=== PATIENT | female | born 1950 | race Caucasian/White ===

== ENCOUNTER → 2017-03-23 | Outpatient (CLI) | payer MEDICARE ==
--- NOTE | 2017-03-26 08:02 | BD ---
EXAMINATION TYPE: MG DEXA axial skeleton. DATE OF EXAM: 03/23/2017 COMPARISON: Prior DEXA bone scan March 14, 2011 CLINICAL HISTORY: Osteopenia per order. Postmenopausal female. Height: 68 Weight: 235.0 FRAX RISK QUESTIONS: Alcohol (3 or more units per day): no Family History (Parent hip fracture): no Glucocorticoids (More than 3mos): no (Ex: prednisone, prednisolone, methylprednisolone, dexamethasone, and hydrocortisone). History of Fracture in Adulthood: no Secondary Osteoporosis: 1. Type 1 Diabetes: no 2. Hyperthyroidism: no 3. Menopause before 45: yes 4. Malnutrition: no 5. Chronic liver disease: no Rheumatoid Arthritis: no Current Tobacco Use: no RISK FACTORS HISTORY OF: Hip Fracture (Right/Left): no Spine Fracture: no History of Wrist Fracture: no Surgery to Spine/Hip(right/left)/Wrist (right/left): bilateral carpal tunnel Family History of Osteoporosis: no Active: no Diet low in dairy products/other sources of calcium: no Postmenopausal woman: yes Lost more than 2 inches in height since high school: yes Frequent falls: no Poor Health: no Hyperparathyroidism: no Adrenal Insufficiency: no MEDICATIONS: naproxen, Singulair Additional History: pt had breast cancer /2006 EXAM MEASUREMENTS: Bone mineral densitometry was performed using the Liquid [employer] System. Bone mineral density as measured about the Lumbar spine is: ----- L1-L4(G/cm2): 1.432 T Score Values are as follows: ----- L2: 1.6 ----- L3: 3.2 ----- L4: 2.6 ----- L1-L4: 2.1 Bone mineral density has: increased 2.1 % since study of: 03.14.2011 Bone mineral density about the R hip (g/cm2): 0.944 Bone mineral density about the L hip (g/cm2): 0.930 T Score values are as follows: -----R Neck: -0.7 -----L Neck: -0.8 -----R Total: -0.7 -----L Total: 0.3 Bone mineral density has: increased 1.9 % since study of: 03.14.2011 IMPRESSION: Normal (Values between +1 and -1 indicate normal bone mass) on today's study. Bone density stable fr om prior. Consider repeating this study in 5 years or sooner if there is some new clinical indication . NOTE: T-SCORE=SD OF THE YOUNG ADULT MEAN.
--- NOTE | 2017-03-26 10:18 | MM ---
Reason for exam: additional evaluation requested from prior study. Last mammogram was performed 1 year and 1 month ago. History: Patient is postmenopausal, has history of breast cancer at age 55, and history of other cancer. Family history of breast cancer in grandmother and breast cancer in mother at age 60. Implant in the right breast, December 2006. Reduction of the left breast, December 2006. Mastectomy of the right breast, October 23, 2006. Malignant right mammotome panel of the right breast, July 20, 2006. Taking estrogen for 13 years 7 months beginning at age 42. Taking progesterone for 13 years 7 months beginning at age 42. Taking tamoxifen for 5 years beginning at age 55. Physical Findings: Nurse did not find any significant physical abnormalities on exam. MG 3D Diag Mammo W/Cad LT CC and MLO view(s) were taken of the left breast. Prior study comparison: March 02, 2016, left breast MG 3d diag mammo w/cad LT. June 29, 2014, mammogram, performed at [facility]. There are scattered fibroglandular densities. No suspicious abnormality. No significant new findings when compared with previous films. These results were verbally communicated with the patient and result sheet given to the patient on 03/23/17. ASSESSMENT: Negative, BI-RAD 1 RECOMMENDATION: Follow-up diagnostic mammogram of the left breast in 1 year.
== END | disposition home or self-care (01) ==
LOC: RADMAMWWP 14:15
PROVIDERS: ATTEND Internal Medicine Hematology & Oncology
DX: Z08 Encounter for follow-up examination after completed treatment for malignant neoplasm (principal); M85.80 Other specified disorders of bone density and structure, unspecified site; N95.1 Menopausal and female climacteric states; Z85.3 Personal history of malignant neoplasm of breast
CPT/HCPCS: 77080

== ENCOUNTER → 2017-12-31 | Outpatient (CLI) | payer MEDICARE ==
[2017-12-31 10:57] LABS: HCT 41.4 % (34.0-46.0); HGB 13.7 gm/dL (11.4-16.0); MCH 31.4 pg (25.0-35.0); Mean Platelet Volume 8.2; Platelet Count 230 k/uL (150-450); RBC 4.36 m/uL (3.80-5.40); RDW 13.7 % (11.5-15.5); WBC 7.3 k/uL (3.8-10.6)
[2017-12-31 11:01] LABS: INR 0.9 (<1.2); Prothrombin Time 9.4 sec (9.0-12.0)
[2017-12-31 11:07] LABS: Appearance,Urine Clear (Clear); Bilirubin,Urine Negative (Negative); Blood,Urine Negative (Negative); Calcium 9.5 mg/dL (8.4-10.2); Color,Urine Light Yellow; Glucose,Urine (UA) Negative (Negative); Ketones,Urine Negative (Negative); Leukocyte Esterase,Urine Negative (Negative); Nitrite,Urine Negative (Negative); PH, Urine 5.5 (5.0-8.0); Potassium 4.2 mmol/L (3.5-5.1); Protein,Urine Negative (Negative); Specific Gravity,Urine 1.013 (1.001-1.035); Total Bilirubin 0.3 mg/dL (0.2-1.3); Total Protein 6.6 g/dL (6.3-8.2); Urobilinogen,Urine <2.0 mg/dL (<2.0)
== END | disposition home or self-care (01) ==
LOC: LABPAT 09:29
PROVIDERS: ATTEND Orthopaedic Surgery
DX: Z01.812 Encounter for preprocedural laboratory examination (principal); Z01.818 Encounter for other preprocedural examination
CPT/HCPCS: 36415; 80053; 81003; 85027; 85610; 85730; 87070; 93005

== ENCOUNTER 2018-01-08 06:17 | Inpatient (IN) | payer MEDICARE ==
[2018-01-03 12:05] VITALS: BMI 32.4
[~2018-01-08 06:17] MED LIST: DEXAMETHASONE SOD PHOSPHATE 10 MG/ML 1 ML VIAL IV ONE; LACTATED RINGERS 1,000 ML IV SCH; LIDOCAINE 1% 20 ML VIAL (10MG/ML) FOR IV START INTRADERMA PRN; MIDAZOLAM 2 MG/2 ML VIAL IV PRN; ONDANSETRON 4 MG/2 ML VIAL IVP ONE; ceFAZolin IN SWFI 2 GM/20 ML SYRINGE IVP ONE
[2018-01-08] MEDS ORDERED: PHENYLEPHRINE-0.9% NACL SYG 1 MG/10 ML SYRINGE ONE (07:45)
[2018-01-08] MEDS ORDERED: MIDAZOLAM 2 MG/2 ML VIAL ONE (07:45)
[2018-01-08] MEDS ORDERED: PROPOFOL 10 MG/ML 20 ML VIAL IV ONE (07:45)
[2018-01-08] MEDS ORDERED: fentaNYL (PF) 50 MCG/ML 2 ML AMP ONE (07:45)
[2018-01-08] MEDS ORDERED: diphenhydrAMINE 50 MG/ML 1 ML VIAL ONE (07:45)
[2018-01-08] MEDS ORDERED: LACTATED RINGERS 1,000 ML IV ONE ×2 (08:22→13:01)
[2018-01-08] MEDS ORDERED: ceFAZolin 3,000 MG in SODIUM CHLORIDE 0.9% IRRIGATIO 3,000 ML IRRIGATION ONE (08:24)
[2018-01-08] MEDS ORDERED: NA PHOS,M-B/NA PHOS,DI-BA 133 ML ENEMA RECTAL PRN (10:13)
[2018-01-08] MEDS ORDERED: NALOXONE 0.4 MG/ML 1 ML VIAL IV PRN (10:13)
[2018-01-08] MEDS ORDERED: MAGNESIUM HYDROXIDE 2,400 MG/10 ML CUP PO PRN (10:13)
[2018-01-08] MEDS ORDERED: BISACODYL 10 MG SUPP RECTAL PRN (10:13)
[2018-01-08] MEDS ORDERED: ACETAMINOPHEN TAB 325 MG TAB PO PRN (10:13)
[2018-01-08] MEDS ORDERED: HYDROcodone/APAP 5-325MG 1 EACH TAB PO PRN (10:13)
[2018-01-08] MEDS ORDERED: HYDROmorphone 0.5 MG/0.5 ML SYRINGE IVP PRN ×4 (10:13)
[2018-01-08] MEDS ORDERED: ONDANSETRON 4 MG/2 ML VIAL IVP PRN (10:13)
[2018-01-08] MEDS ORDERED: hydrOXYzine PAMOATE 25 MG CAP PO PRN (10:13)
[2018-01-08] MEDS ORDERED: TEMAZEPAM 15 MG CAP PO PRN (10:13)
[2018-01-08] MEDS: fentaNYL (PF) 50 MCG/ML 2 ML AMP IV PRN ×2 (10:19→10:35)
--- NOTE | 2018-01-08 10:43 | XR ---
EXAMINATION TYPE: XR knee limited RT DATE OF EXAM: 01/08/2018 CLINICAL HISTORY: Right knee pain and arthritis status post total knee replacement. TECHNIQUE: Portable AP and crosstable lateral views of the right knee are obtained immediately posto peratively. COMPARISON: None FINDINGS: Metallic hardware from total right knee arthroplasty is seen and appears satisfactory in a lignment and position. There is evidence of recent surgery with diffuse subcutaneous gas and soft ti ssue gas noted. IMPRESSION: METALLIC HARDWARE FROM TOTAL RIGHT KNEE ARTHROPLASTY IS SATISFACTORY IN ALIGNMENT.
[2018-01-08] MEDS ORDERED: MEPERIDINE 50 MG/ML SYRINGE IVP ONE ×2 (11:14→11:36)
[2018-01-08] MEDS ORDERED: HYDROmorphone 1 MG/ML 1 ML SYRINGE IVP ONE ×2 (12:24→12:35)
[2018-01-08] MEDS: LACTATED RINGERS 1,000 ML IV SCH ×2 (13:35→22:40)
[2018-01-08] MEDS: HYDROcodone/APAP 5-325MG 1 EACH TAB PO PRN ×2 (16:46→22:38)
[2018-01-08] MEDS: ceFAZolin IN SWFI 2 GM/20 ML SYRINGE IVP SCH (16:47)
--- NOTE | 2018-01-08 17:55 | P.CNPUL ---
History of Present Illness Consult date: 01/08/18 Reason for consult: other Chief complaint: Right total knee arthroplasty History of present illness: Patient is a 67-year-old white female with the past medical history of breast cancer status post right breast mastectomy, previous episode of pneumonia, skin cancer and ALLERGIC rhinitis, degenerative joint disease of the right knee, is status post right total knee arthroplasty. She sees Dr. 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 Patient had tried Eufflexxa injection series, and several corticosteroid injections both without benefit, she was having pain in the right knee as well as stiffness, in addition to altered gait this was affecting her back as well. Patient underwent right total knee arthroplasty on 01/08/2018, under spinal anesthesia, tolerated procedure well, seeing the patient postprocedure, awake and alert, and comfortable, sitting up in the recliner on the surgical floor. He denies any dyspnea, she is on room air, and her pulse ox is 95%, patient is afebrile, vitals are stable. On sounds are clear, no wheezing, no rhonchi, no rales. Labs were reviewed, WBC is within normal limits, hemoglobin is 13.7, lecture lites and renal profile are within normal limits. The mild discomfort in the right knee, which is El wrapped, and there is ice applied to it. Otherwise patient is calm and comfortable, her family is at the bedside. Review of Systems All systems: negative Constitutional: Denies chills, Denies fever Eyes: denies blurred vision, denies pain Ears, nose, mouth and throat: Denies headache, Denies sore throat Cardiovascular: Denies chest pain, Denies shortness of breath Respiratory: Denies cough Gastrointestinal: Denies abdominal pain, Denies diarrhea, Denies nausea, Denies vomiting Genitourinary: Denies dysuria, Denies hematuria Musculoskeletal: Reports gait dysfunction, Reports limitation of motion, Denies myalgias Musculoskeletal: right: knee pain, knee stiffness Integumentary: Denies pruritus, Denies rash Neurological: Denies numbness, Denies weakness Psychiatric: Denies anxiety, Denies depression Endocrine: Denies fatigue, Denies weight change Past Medical History Past Medical History: Cancer, Osteoarthritis (OA) Additional Past Medical History / Comment(s): HX BREAST AND SKIN CANCER History of Any Multi-Drug Resistant Organisms: None Reported Past Surgical History: Breast Surgery, Orthopedic Surgery Additional Past Surgical History / Comment(s): COLONOSCOPY. BILAT CTR. REMOVAL BASAL CELL CARCINOMA LT ARM. RT MASTECTOMY. RT BUNIONECTOMY, TRK Past Anesthesia/Blood Transfusion Reactions: No Reported Reaction Additional Past Anesthesia/Blood Transfusion Reaction / Comment(s): STATES ONLY TAKE A LITTLE ANESTHESIA TO BE EFFECTIVE Past Psychological History: No Psychological Hx Reported Smoking Status: Former smoker Past Alcohol Use History: None Reported Additional Past Alcohol Use History / Comment(s): QUIT SMOKING AGE 29 Past Drug Use History: None Reported - Past Family History Mother Family Medical History: Cancer Medications and Allergies Home Medications Medication Instructions Recorded Confirmed Type Aspirin EC [Ecotrin Low Dose] 81 mg PO DAILY 01/03/18 01/08/18 History Calcium Citrate/Vitamin D3 1 tab PO HS 01/03/18 01/08/18 History [Calcitrate + Vit D Caplet] Excedrin Pm 2 tab PO HS 01/03/18 01/08/18 History Flaxseed Oil [Andrews-3 Flaxseed Oil] 1,000 mg PO DAILY 01/03/18 01/08/18 History Montelukast [Singulair] 10 mg PO HS 01/03/18 01/08/18 History Naproxen [Naprosyn] 500 mg PO Q12HR 01/03/18 01/08/18 History Allergies Allergy/AdvReac Type Severity Reaction Status Date / Time venlafaxine [From Effexor] AdvReac LIGHTHEADED Verified 01/08/18 14:24 AND DIZZY Physical Exam Vitals: Vital Signs Temp Pulse Resp BP Pulse Ox 01/08/18 15:15 98.3 F 86 16 115/70 97 01/08/18 13:13 97.8 F 59 L 14 149/82 95 01/08/18 12:55 84 16 137/65 100 01/08/18 12:25 77 16 128/62 100 01/08/18 12:00 71 16 127/60 100 01/08/18 11:44 73 16 145/67 99 01/08/18 11:30 65 16 128/61 100 01/08/18 11:00 67 16 128/59 100 01/08/18 10:47 63 16 126/60 98 01/08/18 10:34 74 16 130/63 94 L 01/08/18 10:09 96.9 F L 71 18 134/56 95 01/08/18 06:42 98.0 F 81 16 134/62 96 Intake and Output 01/08/18 01/08/18 01/08/18 06:59 14:59 22:59 Intake Total 1950 Output Total 500 Balance 1451 Intake: IV 1950 Output: Urine 450 Estimated Blood Loss 50 Other: Voiding Method Indwelling Catheter Weight 102.512 kg GENERAL EXAM: Alert, pleasant 67-year-old female, comfortable in no apparent distress. HEAD: Normocephalic/atraumatic. EYES: Normal reaction of pupils, equal size. Conjunctiva pink, sclera white. NOSE: Clear with pink turbinates. THROAT: No erythema or exudates. NECK: No masses, no JVD, no thyroid enlargement, no adenopathy. CHEST: No chest wall deformity. Symmetrical expansion. LUNGS: Equal air entry with no crackles, wheeze, rhonchi or dullness. CVS: Regular rate and rhythm, normal S1 and S2, no gallops, no murmurs, no rubs ABDOMEN: Soft, nontender. No hepatosplenomegaly, normal bowel sounds, no guarding or rigidity. EXTREMITIES: No clubbing, no edema, no cyanosis, 2+ pulses and upper and lower extremities. MUSCULOSKELETAL: Right knee is postsurgical knee, El wrapped, with ice. SPINE: No scoliosis or deformity SKIN: No rashes CENTRAL NERVOUS SYSTEM: Alert and oriented -3. No focal deficits, tone is normal in all 4 extremities. PSYCHIATRIC: Alert and oriented -3. Appropriate affect. Intact judgment and insight. Assessment and Plan Plan: Assessment: #1. Degenerative joint disease of knee, status post total right knee arthroplasty postop day 0 #2. COPD, with moderate obstruction, with underlying FEV1 of 75% of predicted, currently stable #3. Previous smoking history #4. History of breast cancer and right breast mastectomy #5. Previous episode of pneumonia #6. Seasonal rhinitis Plan: She is stable from pulmonary standpoint, no dyspnea, no wheezing, no chest congestion. Encourage deep breathing and coughing, encourage incentive spirometry use, we will order DuoNeb nebulized treatments on an as-needed basis. I performed a history & physical examination of the patient and discussed their management with my nurse practitioner, Rosita Reyes. I reviewed the nurse practitioner's note and agree with the documented findings and plan of care. Lung sounds are clear. The findings and the impression was discussed with the patient. I attest to the documentation by the nurse practitioner. Time with Patient: Greater than 30
[2018-01-08] MEDS ORDERED: WARFARIN 5 MG TAB PO ONE (18:00)
[2018-01-08] MEDS: SENNOSIDES-DOCUSATE SODIUM 1 EACH TAB PO SCH (21:02)
[2018-01-08] MEDS: MONTELUKAST 10 MG TAB PO SCH (21:02)
[2018-01-09] MEDS: ceFAZolin IN SWFI 2 GM/20 ML SYRINGE IVP SCH (04:17)
[2018-01-09] MEDS: HYDROcodone/APAP 5-325MG 1 EACH TAB PO PRN ×3 (06:08→18:42)
[2018-01-09 08:06] LABS: INR 1.2 (<1.2); Prothrombin Time 11.3 sec (9.0-12.0)
[2018-01-09 08:08] LABS: Basophils % (A) 0 %; Eosinophils % (A) 0 %; HCT 32.8 % (34.0-46.0); HGB 10.8 gm/dL (11.4-16.0); Lymphocytes # (A) 1.4 k/uL (1.0-4.8); Lymphocytes % (A) 17 %; MCH 30.6 pg (25.0-35.0); MCHC 32.8 g/dL (31.0-37.0); MCV 93.5 fL (80.0-100.0); Mean Platelet Volume 8.3; Monocytes # (A) 0.6 k/uL (0-1.0); Monocytes % (A) 7 %; Neutrophils # (A) 6.1 k/uL (1.3-7.7); Neutrophils % (A) 74 %; Platelet Count 270 k/uL (150-450); RBC 3.51 m/uL (3.80-5.40); RDW 13.1 % (11.5-15.5); WBC 8.3 k/uL (3.8-10.6)
--- NOTE | 2018-01-09 08:52 | P.PN ---
Subjective Progress Note Date: 01/09/18 Principal diagnosis: Status post right total knee arthroplasty This is a 67 year-old female post right total knee arthroplasty. This is post- op day 1. The patient was evaluated in the recliner at the bedside today. The patient denies nausea, vomiting, abdominal pain, shortness of breath, and chest pain this morning. She states her pain is controlled at this time. The patient has not been up with physical therapy. Objective - Vital Signs Vital signs: Vital Signs Temp 98.2 F 01/09/18 01:13 Pulse 84 01/09/18 01:13 Resp 16 01/09/18 01:13 BP 124/69 01/09/18 01:13 Pulse Ox 96 01/09/18 01:13 Intake & Output 01/08/18 01/09/18 01/09/18 18:59 06:59 18:59 Intake Total 195 1600 Output Total 500 400 Balance 1451 1200 Weight 102.512 kg Intake: IV 1950 Intake, IV Titration 1600 Amount Lactated Ringers 1,000 ml 800 @ 0 mls/hr IV .[facility] Rx#:[id number] Lactated Ringers 1,000 ml 800 @ 100 mls/hr IV .Q10H [facility] Rx#:[id number] Output: Urine 450 400 Estimated Blood Loss 50 Other: Voiding Method Indwelling Catheter Indwelling Catheter # Voids 2 - Exam The patient does not appear in acute distress. Alert and orientated x3. Dressing is clean dry and intact. Incision appears fine with no erythema or active drainage. Calf is soft and nontender. Good foot and ankle motion without difficulty. Sensation and circulatory status is intact. - Labs CBC & Chem 7: 01/09/18 07:22 Labs: Abnormal Lab Results - Last 24 Hours (Table) 01/09/18 01/09/18 Range/Units 07:22 07:22 RBC 3.51 L (3.80-5.40) m/uL Hgb 10.8 L (11.4-16.0) gm/dL Hct 32.8 L (34.0-46.0) % INR 1.2 H (<1.2) Laboratory Tests 01/09/18 07:22 PT 11.3 INR 1.2 H Assessment and Plan (1) Primary localized osteoarthritis of right knee Current Visit: Yes Status: Acute Code(s): M17.11 - UNILATERAL PRIMARY OSTEOARTHRITIS, RIGHT KNEE SNOMED Code(s): 275200534 (2) Status post right knee replacement Current Visit: Yes Status: Acute Code(s): Z96.651 - PRESENCE OF RIGHT ARTIFICIAL KNEE JOINT SNOMED Code(s): 418258050 Plan: 1. Continue pain control 2. Anticoagulation with Coumadin per protocol 3. Start physical therapy, CPM and ambulation today 4. Anticipate discharge to skilled rehab on Sunday
[2018-01-09] MEDS ORDERED: IPRATROPIUM-ALBUTEROL 3 ML NEB INHALATION PRN (09:36)
[2018-01-09] MEDS: LACTATED RINGERS 1,000 ML IV SCH ×2 (11:36→17:24)
--- NOTE | 2018-01-09 12:30 | OP ---
OPERATIVE REPORT DATE OF SERVICE: 01/08/2018 SURGEON: Keon Najera DO TRAIN DIRECTOR: Kathleen Bauer RN. PREOPERATIVE DIAGNOSIS: Tricompartment degenerative joint disease right knee with prominence of components. FINAL DIAGNOSIS: Right total knee replacement arthroplasty utilizing Tamara Press-Fit components. DESCRIPTION OF PROCEDURE: Patient was taken to the operative suite and placed in supine position. Spinal anesthesia was performed by Department of Anesthesiology. Betadine prep was carried out over the median thigh to the calf. Sterile drapes applied in the usual manner. A medial parapatellar incision was developed. The medial retinaculum was incised as well as the synovium. The patella was everted and dislocated laterally as the knee was brought into flexion and held in a leg nicole. An intramedullary cutting guide was utilized in initiated into the femur. The appropriate cuts were initiated from the sizing of a 10 right femur component. The provisionary component of a size 10 was impacted into position and alignment as well as bone interface was well maintained. The tibial cutting guide was aligned and the wafer cut was performed. Wafter was removed as well as both the medial and lateral menisci were excised. A size 6 tibial metal plate was selected. The 10 mm spacer was inserted and with perfect balancing of the tibial component, the alignment was noted. The tibial tray was marked for position and the appropriate peg holes were drilled into the tibia. The patella was shaped with a shelving planer. A size 32 mm patellar component was selected. Trial components were examined again and final selection was initiated. Pulsavac antibiotic solution was initiated and the knee was irrigated copiously in preparation for final components. The trial size 10 trabecular metal three-hole peg was placed in pre-drilled holes and the tibia impacted. Final size 10 right femoral component was impacted into position. The final patellar component size 32 was placed in the pre-drilled holes and the patella impacted. The final size 10 mm polyethylene insert was inserted into the tibial tray and position and alignment were well maintained. The knee was placed in slight flexion and pneumatic tourniquet was deflated. Superficial bleeding was controlled with electrocautery. Pulsavac antibiotic solution was irrigated over the knee. The medial retinaculum was incised and it was approximated with #3 Vicryl suture in horizontal mattress fashion. A #2 Quill suture was utilized in reinforcement of the retinaculum in running fashion. A 3-0 Vicryl suture was utilized in subcutaneous closure. A #3-0 Quill suture was utilized for subcuticular close. Dermabond was then utilized in sealing the wound and a sterile dressing was applied. The patient was then transferred to the recovery room in satisfactory postoperative condition. GROSS PATHOLOGY: There was evidence of degenerative joint disease in the right knee with valgus deformity. MMODL / IJN: [id number] / BERNARD[place]
--- NOTE | 2018-01-09 13:52 | P.PN ---
Subjective Progress Note Date: 01/09/18 Principal diagnosis: DJD of the right knee, status post right total knee arthroplasty, COPD, stable Patient is a 67-year-old white female with the past medical history of breast cancer status post right breast mastectomy, previous episode of pneumonia, skin cancer and ALLERGIC rhinitis, degenerative joint disease of the right knee, is status post right total knee arthroplasty. She sees Dr. 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 Patient had tried Eufflexxa injection series, and several corticosteroid injections both without benefit, she was having pain in the right knee as well as stiffness, in addition to altered gait this was affecting her back as well. Patient underwent right total knee arthroplasty on 01/08/2018, under spinal anesthesia, tolerated procedure well, seeing the patient postprocedure, awake and alert, and comfortable, sitting up in the recliner on the surgical floor. He denies any dyspnea, she is on room air, and her pulse ox is 95%, patient is afebrile, vitals are stable. On sounds are clear, no wheezing, no rhonchi, no rales. Labs were reviewed, WBC is within normal limits, hemoglobin is 13.7, lecture lites and renal profile are within normal limits. The mild discomfort in the right knee, which is El wrapped, and there is ice applied to it. Otherwise patient is calm and comfortable, her family is at the bedside. On 01/09/2018 patient seen in follow-up on the surgical floor. No breathing difficulty, no chest congestion, no chest tightness, no wheezing, no phlegm production. IS effort is 1500 mL today. The pain in the right knee is a bit more bothersome today, patient is applying ice packs, orthopedic surgery is managing the pain medications. No acute issues overnight, room air pulse ox is 96%, vital signs are stable. Objective - Vital Signs Vital signs: Vital Signs Temp 98.6 F 01/09/18 07:10 Pulse 79 01/09/18 07:10 Resp 16 01/09/18 07:10 BP 120/65 01/09/18 07:10 Pulse Ox 96 01/09/18 07:10 Intake & Output 01/08/18 01/09/18 01/09/18 18:59 06:59 18:59 Intake Total 1951 1600 Output Total 500 400 Balance 1451 1200 Weight 102.512 kg 102.512 kg Intake: IV 1950 Intake, IV Titration 1600 Amount Lactated Ringers 1,000 ml 800 @ 0 mls/hr IV .[facility] Rx#:[id number] Lactated Ringers 1,000 ml 800 @ 100 mls/hr IV .Q10H [facility] Rx#:[id number] Output: Urine 450 400 Estimated Blood Loss 50 Other: Voiding Method Indwelling Catheter Indwelling Catheter Indwelling Catheter # Voids 2 - Exam GENERAL EXAM: Alert, pleasant 67-year-old female, comfortable in no apparent distress. HEAD: Normocephalic/atraumatic. EYES: Normal reaction of pupils, equal size. Conjunctiva pink, sclera white. NOSE: Clear with pink turbinates. THROAT: No erythema or exudates. NECK: No masses, no JVD, no thyroid enlargement, no adenopathy. CHEST: No chest wall deformity. Symmetrical expansion. LUNGS: Equal air entry with no crackles, wheeze, rhonchi or dullness. CVS: Regular rate and rhythm, normal S1 and S2, no gallops, no murmurs, no rubs ABDOMEN: Soft, nontender. No hepatosplenomegaly, normal bowel sounds, no guarding or rigidity. EXTREMITIES: No clubbing, no edema, no cyanosis, 2+ pulses and upper and lower extremities. MUSCULOSKELETAL: Right knee is postsurgical knee, El wrapped, with ice. SPINE: No scoliosis or deformity SKIN: No rashes CENTRAL NERVOUS SYSTEM: Alert and oriented -3. No focal deficits, tone is normal in all 4 extremities. PSYCHIATRIC: Alert and oriented -3. Appropriate affect. Intact judgment and insight. - Labs CBC & Chem 7: 01/09/18 07:22 Labs: Abnormal Lab Results - Last 24 Hours (Table) 01/09/18 01/09/18 Range/Units 07:22 07:22 RBC 3.51 L (3.80-5.40) m/uL Hgb 10.8 L (11.4-16.0) gm/dL Hct 32.8 L (34.0-46.0) % INR 1.2 H (<1.2) Assessment and Plan Plan: Assessment: #1. Degenerative joint disease of knee, status post total right knee arthroplasty postop day 0 #2. COPD, with moderate obstruction, with underlying FEV1 of 75% of predicted, currently stable #3. Previous smoking history #4. History of breast cancer and right breast mastectomy #5. Previous episode of pneumonia #6. Seasonal rhinitis Plan: Continue encouraging incentive spirometry use, her COPD is stable right now, lung sounds are clear. Nebulized bronchodilators on as-needed basis. I performed a history & physical examination of the patient and discussed their management with my nurse practitioner, Rosita Reyes. I reviewed the nurse practitioner's note and agree with the documented findings and plan of care. Lung sounds are clear. The findings and the impression was discussed with the patient. I attest to the documentation by the nurse practitioner. Time with Patient: Less than 30
[2018-01-09] MEDS ORDERED: HYDROmorphone 1 MG/ML 1 ML SYRINGE IVP PRN ×4 (17:21→17:22)
[2018-01-09] MEDS ORDERED: WARFARIN 5 MG TAB PO ONE (18:00)
[2018-01-09] MEDS: MONTELUKAST 10 MG TAB PO SCH (22:10)
[2018-01-09] MEDS: SENNOSIDES-DOCUSATE SODIUM 1 EACH TAB PO SCH (22:10)
[2018-01-10] MEDS: LACTATED RINGERS 1,000 ML IV SCH ×3 (02:15→21:03)
[2018-01-10] MEDS: HYDROcodone/APAP 5-325MG 1 EACH TAB PO PRN ×4 (02:16→21:01)
[2018-01-10 03:16] VITALS: RESP 16
[2018-01-10 07:34] LABS: INR 1.2 (<1.2); Prothrombin Time 11.9 sec (9.0-12.0)
--- NOTE | 2018-01-10 09:01 | P.DS ---
Providers Date of admission: 01/08/18 06:17 Expected date of discharge: 01/10/18 Attending physician: Keon Najera Consults: 01/08/18 10:13 Consult Physician Routine Consulting Provider: Gabriela Eller Reason/Comments: medical management Do you want consulting provider notified?: Yes Primary care physician: Gabriela Eller - Discharge Diagnosis(es) (1) Primary localized osteoarthritis of right knee Current Visit: Yes Status: Acute (2) Status post right knee replacement Current Visit: Yes Status: Acute Hospital Course: This is a pleasant 67-year-old female last seen in our office with complaints of right knee pain. Patient has known history of degenerative arthritis of the right knee and presented to discuss options. After discussion and consideration , patient elected to proceed with a total knee arthroplasty of the right knee. The patient was seen preoperatively and medically cleared for surgery by Dr. Eller. The patient was admitted to [facility] and underwent right total knee arthroplasty on 01/08/[address] Najera. The procedure was performed without complications or sequelae. The patient has done well postoperatively. The patient was seen and evaluated at bedside today and denies any new complaints. Pain is reasonably controlled. Dressing is clean dry and intact. Incision looks fine with no erythema or active drainage. Calf is soft and nontender. The patient has full foot and ankle motion without difficulty. Patient's right lower extremity is neurovascular intact. Patient is orthopedically stable for discharge to home today. Pertinent Studies: Laboratory Tests 01/09/18 01/10/18 07:22 06:57 WBC 8.3 RBC 3.51 L Hgb 10.8 L Hct 32.8 L PT 11.9 INR 1.2 H Patient Condition at Discharge: Stable Plan - Discharge Summary Discharge Rx Participant: Yes New Discharge Prescriptions: New Aspirin 325 mg PO DAILY #30 tab HYDROcodone/APAP 5-325MG [[place] 5] 1 - 2 each PO Q4-6H PRN #60 tab PRN Reason: Pain Sennosides-Docusate Sodium [Senokot-S] 2 tab PO DAILY #30 tablet Warfarin [Coumadin] 2.5 mg PO DIRECTED #30 tab No Action Naproxen [Naprosyn] 500 mg PO Q12HR Aspirin EC [Ecotrin Low Dose] 81 mg PO DAILY Montelukast [Singulair] 10 mg PO HS Flaxseed Oil [[place]-3 Flaxseed Oil] 1,000 mg PO DAILY Excedrin Pm 2 tab PO HS Calcium Citrate/Vitamin D3 [Calcitrate + Vit D Caplet] 1 tab PO HS Discharge Medication List Aspirin EC [Ecotrin Low Dose] 81 mg PO DAILY 01/03/18 [History] Calcium Citrate/Vitamin D3 [Calcitrate + Vit D Caplet] 1 tab PO HS 01/03/18 [ History] Excedrin Pm 2 tab PO HS 01/03/18 [History] Flaxseed Oil [[place]-3 Flaxseed Oil] 1,000 mg PO DAILY 01/03/18 [History] Montelukast [Singulair] 10 mg PO HS 01/03/18 [History] Naproxen [Naprosyn] 500 mg PO Q12HR 01/03/18 [History] Aspirin 325 mg PO DAILY #30 tab 01/10/18 [Rx] HYDROcodone/APAP 5-325MG [[place] 5] 1 - 2 each PO Q4-6H PRN #60 tab 01/10/18 [Rx] Sennosides-Docusate Sodium [Senokot-S] 2 tab PO DAILY #30 tablet 01/10/18 [Rx] Warfarin [Coumadin] 2.5 mg PO DIRECTED #30 tab 01/10/18 [Rx] Follow up Appointment(s)/Referral(s): Keon Najera DO [Doctor of Osteopathic Medicine] - 01/24/18 9:00 am [facility] Comer [NON-STAFF] - 1 Week Ambulatory/Diagnostic Orders: Continuous Passive Motion (CPM) Machine [DME.AMB1] Time Frame: 3 Weeks, Location : None Selected Patient Instructions/Handouts: Knee Replacement (DC) Activity/Diet/Wound Care/Special Instructions: Weightbearing as tolerated with a walker Coumadin 2.5 mg 1 by mouth every other day for 7 days then take Aspirin 325mg daily for 1 month CPM 5-6 hours daily-Start CPM at 45 degrees then increase by 5 degrees every time on CPM as patient tolerates. Maximum total of 15 degrees every 24 hours. May shower in 3 days if no drainage from incision Keep incision clean and dry Call [facility] at with questions or concerns Discharge Disposition: TRANSFER TO SNF/ECF
--- NOTE | 2018-01-10 09:07 | P.PN ---
Subjective Progress Note Date: 01/10/18 Principal diagnosis: DJD of the right knee, status post right total knee arthroplasty, COPD, stable Patient is a 67-year-old white female with the past medical history of breast cancer status post right breast mastectomy, previous episode of pneumonia, skin cancer and ALLERGIC rhinitis, degenerative joint disease of the right knee, is status post right total knee arthroplasty. She sees Dr. 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 Patient had tried Eufflexxa injection series, and several corticosteroid injections both without benefit, she was having pain in the right knee as well as stiffness, in addition to altered gait this was affecting her back as well. Patient underwent right total knee arthroplasty on 01/08/2018, under spinal anesthesia, tolerated procedure well, seeing the patient postprocedure, awake and alert, and comfortable, sitting up in the recliner on the surgical floor. He denies any dyspnea, she is on room air, and her pulse ox is 95%, patient is afebrile, vitals are stable. On sounds are clear, no wheezing, no rhonchi, no rales. Labs were reviewed, WBC is within normal limits, hemoglobin is 13.7, lecture lites and renal profile are within normal limits. The mild discomfort in the right knee, which is El wrapped, and there is ice applied to it. Otherwise patient is calm and comfortable, her family is at the bedside. On 01/09/2018 patient seen in follow-up on the surgical floor. No breathing difficulty, no chest congestion, no chest tightness, no wheezing, no phlegm production. IS effort is 1500 mL today. The pain in the right knee is a bit more bothersome today, patient is applying ice packs, orthopedic surgery is managing the pain medications. No acute issues overnight, room air pulse ox is 96%, vital signs are stable. On 01/10/2018 patient seen again in follow-up on the surgical floor. Denies any dyspnea, lung sounds are clear to auscultation, incentive spirometry effort is 1752 2000 mL today. Afebrile, vital signs are stable, room air pulse ox is 98%. Right knee pain seems to be under better control today, the patient is full weightbearing, and has been ambulating to the bathroom. Patient was started on Coumadin for anticoagulation by orthopedic surgery, and today's INR is 1.2. Right calf soft and nontender, sensory and circulatory status intact. Arrangements are in progress for transfer to [facility] today Objective - Vital Signs Vital signs: Vital Signs Temp 98.3 F 01/10/18 07:25 Pulse 89 01/10/18 07:25 Resp 16 01/10/18 07:25 BP 114/52 01/10/18 07:25 Pulse Ox 98 01/10/18 07:25 Intake & Output 01/09/18 01/10/18 01/10/18 18:59 06:59 18:59 Intake Total 560 Output Total 2700 800 Balance -2700 -240 Weight 102.512 kg Intake: Intake, IV Titration 300 Amount Lactated Ringers 1,000 ml 300 @ 100 mls/hr IV .Q10H [facility] Rx#:[id number] Oral 260 Output: Urine 2700 800 Uretheral ([place]) 800 Other: Voiding Method Indwelling Catheter Toilet - Exam GENERAL EXAM: Alert, pleasant 67-year-old female, comfortable in no apparent distress. HEAD: Normocephalic/atraumatic. EYES: Normal reaction of pupils, equal size. Conjunctiva pink, sclera white. NOSE: Clear with pink turbinates. THROAT: No erythema or exudates. NECK: No masses, no JVD, no thyroid enlargement, no adenopathy. CHEST: No chest wall deformity. Symmetrical expansion. LUNGS: Equal air entry with no crackles, wheeze, rhonchi or dullness. CVS: Regular rate and rhythm, normal S1 and S2, no gallops, no murmurs, no rubs ABDOMEN: Soft, nontender. No hepatosplenomegaly, normal bowel sounds, no guarding or rigidity. EXTREMITIES: No clubbing, no edema, no cyanosis, 2+ pulses and upper and lower extremities. MUSCULOSKELETAL: Right knee is postsurgical knee, El wrapped, with ice. Right calf is soft, nontender, circulation and sensory status is intact SPINE: No scoliosis or deformity SKIN: No rashes CENTRAL NERVOUS SYSTEM: Alert and oriented -3. No focal deficits, tone is normal in all 4 extremities. PSYCHIATRIC: Alert and oriented -3. Appropriate affect. Intact judgment and insight. - Labs CBC & Chem 7: 01/09/18 07:22 Labs: Abnormal Lab Results - Last 24 Hours (Table) 01/10/18 Range/Units 06:57 INR 1.2 H (<1.2) Assessment and Plan Plan: Assessment: #1. Degenerative joint disease of knee, status post total right knee arthroplasty postop day 2 #2. COPD, with moderate obstruction, with underlying FEV1 of 75% of predicted, currently stable #3. Previous smoking history #4. History of breast cancer and right breast mastectomy #5. Previous episode of pneumonia #6. Seasonal rhinitis Plan: Continue encouraging deep breathing and coughing, incentive spirometry, ambulation. She is stable for discharge to [facility] and rehab today from pulmonary standpoint. I performed a history & physical examination of the patient and discussed their management with my nurse practitioner, Rosita Reyes. I reviewed the nurse practitioner's note and agree with the documented findings and plan of care. Lung sounds are clear. The findings and the impression was discussed with the patient. I attest to the documentation by the nurse practitioner. Time with Patient: Less than 30
[2018-01-10] MEDS ORDERED: WARFARIN 10 MG TAB PO ONE (18:00)
[2018-01-10] MEDS: SENNOSIDES-DOCUSATE SODIUM 1 EACH TAB PO SCH (20:58)
[2018-01-10] MEDS: MONTELUKAST 10 MG TAB PO SCH (20:58)
[2018-01-11 07:36] LABS: Basophils % (A) 1 %; Eosinophils # (A) 0.1 k/uL (0-0.7); Eosinophils % (A) 1 %; HCT 29.1 % (34.0-46.0); HGB 9.5 gm/dL (11.4-16.0); Lymphocytes # (A) 1.2 k/uL (1.0-4.8); Lymphocytes % (A) 15 %; MCH 30.7 pg (25.0-35.0); MCHC 32.6 g/dL (31.0-37.0); Mean Platelet Volume 8.9; Monocytes # (A) 0.5 k/uL (0-1.0); Monocytes % (A) 6 %; Neutrophils # (A) 5.9 k/uL (1.3-7.7); Neutrophils % (A) 74 %; Platelet Count 234 k/uL (150-450); RBC 3.09 m/uL (3.80-5.40); RDW 13.1 % (11.5-15.5); WBC 7.9 k/uL (3.8-10.6)
[2018-01-11 07:39] LABS: INR 1.4 (<1.2)
[2018-01-11 07:40] LABS: Prothrombin Time 13.3 sec (9.0-12.0)
[2018-01-11] MEDS: HYDROcodone/APAP 5-325MG 1 EACH TAB PO PRN (07:53)
[2018-01-11] MEDS: LACTATED RINGERS 1,000 ML IV SCH (08:40)
--- NOTE | 2018-01-11 09:53 | US ---
EXAMINATION TYPE: US venous doppler duplex LE RT DATE OF EXAM: 01/11/2018 9:41 AM COMPARISON: NONE CLINICAL HISTORY: calf pain and swelling. Total knee replacement on Monday 01/08. On blood thinners- Coumadin SIDE PERFORMED: Right TECHNIQUE: The lower extremity deep venous system is examined utilizing real time linear array sonog monica with graded compression, doppler sonography and color-flow sonography. VESSELS IMAGED: External Iliac Vein (EIV) Common Femoral Vein Deep Femoral Vein Greater Saphenous Vein * Femoral Vein Popliteal Vein Small Saphenous Vein * Proximal Calf Veins (* superficial vessels) Edema channels are present within the soft tissues. Right Leg: Negative for DVT Grayscale, color doppler, spectral doppler imaging performed of the deep veins of the lower extremiti es. There is normal flow, compressibility, vascular waveforms. IMPRESSION: No evident deep venous thrombosis at or above the right knee. Follow-up as indicated.
[2018-01-11 09:59] VITALS: BP 109/66; PULSE 96; TEMP 97.2
--- NOTE | 2018-01-11 10:27 | P.DS ---
Providers Date of admission: 01/08/18 06:17 Expected date of discharge: 01/11/18 Attending physician: Keon Najera Consults: 01/08/18 10:13 Consult Physician Routine Consulting Provider: Gabriela Eller Reason/Comments: medical management Do you want consulting provider notified?: Yes Primary care physician: Gabriela Eller - Discharge Diagnosis(es) (1) Primary localized osteoarthritis of right knee Current Visit: Yes Status: Acute (2) Status post right knee replacement Current Visit: Yes Status: Acute Hospital Course: This is a 67 year-old female last seen in our office with complaints of right knee pain. The patient has a known history of degenerative arthritis of the right knee and presented to discuss options. After discussion and consideration the patient elected to proceed with a right total knee arthroplasty. The patient was seen preoperatively by Dr. Eller and cleared for surgery. The patient was admitted to [facility] on 01/08/2018 and underwent a right total knee arthroplasty by Dr. Najera. The procedure was performed without complications or sequelae. The patient was seen and evaluated at bedside today. The patient's pain is well-controlled. The patient has no new complaints today denies any fevers, chills, nausea, vomiting, or shortness of breath. Vital signs are stable. The dressing is clean, dry and intact. Incision looks fine with no erythema or active drainage. Calf is soft and nontender. The patient has full ankle motion without difficulty. The patient' s right lower extremity is neurovascularly intact. Venous doppler of the right leg is negative for DVT. The patient is orthopedically stable for discharge to skilled rehab today in stable condition. Pertinent Studies: Laboratory Tests 01/11/18 01/11/18 06:25 06:25 WBC 7.9 RBC 3.09 L Hgb 9.5 L Hct 29.1 L PT 13.3 H INR 1.4 H Patient Condition at Discharge: Stable Plan - Discharge Summary Discharge Rx Participant: Yes New Discharge Prescriptions: New Aspirin 325 mg PO DAILY #30 tab HYDROcodone/APAP 5-325MG [[place] 5] 1 - 2 each PO Q4-6H PRN #60 tab PRN Reason: Pain Sennosides-Docusate Sodium [Senokot-S] 2 tab PO DAILY #30 tablet Warfarin [Coumadin] 2.5 mg PO DIRECTED #30 tab Continue Montelukast [Singulair] 10 mg PO HS Flaxseed Oil [[place]-3 Flaxseed Oil] 1,000 mg PO DAILY Excedrin Pm 2 tab PO HS Calcium Citrate/Vitamin D3 [Calcitrate + Vit D Caplet] 1 tab PO HS Discontinued Naproxen [Naprosyn] 500 mg PO Q12HR Aspirin EC [Ecotrin Low Dose] 81 mg PO DAILY Discharge Medication List Calcium Citrate/Vitamin D3 [Calcitrate + Vit D Caplet] 1 tab PO HS 01/03/18 [ History] Excedrin Pm 2 tab PO HS 01/03/18 [History] Flaxseed Oil [[place]-3 Flaxseed Oil] 1,000 mg PO DAILY 01/03/18 [History] Montelukast [Singulair] 10 mg PO HS 01/03/18 [History] Aspirin 325 mg PO DAILY #30 tab 01/10/18 [Rx] HYDROcodone/APAP 5-325MG [[place] 5] 1 - 2 each PO Q4-6H PRN #60 tab 01/10/18 [Rx] Sennosides-Docusate Sodium [Senokot-S] 2 tab PO DAILY #30 tablet 01/10/18 [Rx] Warfarin [Coumadin] 2.5 mg PO DIRECTED #30 tab 01/10/18 [Rx] Follow up Appointment(s)/Referral(s): Keon Najera DO [Doctor of Osteopathic Medicine] - 01/24/18 9:00 am [facility] Comer [NON-STAFF] - 1 Week Ambulatory/Diagnostic Orders: Continuous Passive Motion (CPM) Machine [DME.AMB1] Time Frame: 3 Weeks, Location : None Selected Patient Instructions/Handouts: Knee Replacement (DC) Activity/Diet/Wound Care/Special Instructions: Weightbearing as tolerated with a walker Coumadin 2.5 mg 1 by mouth every other day for 7 days then take Aspirin 325mg daily for 1 month CPM 5-6 hours daily-Start CPM at 45 degrees then increase by 5 degrees every time on CPM as patient tolerates. Maximum total of 15 degrees every 24 hours. May shower in 3 days if no drainage from incision Keep incision clean and dry Call [facility] at with questions or concerns Discharge Disposition: TRANSFER TO SNF/ECF
--- NOTE | 2018-01-11 11:48 | P.PN ---
Subjective Progress Note Date: 01/11/18 Principal diagnosis: DJD of the right knee, status post right total knee arthroplasty, COPD, stable Patient is a 67-year-old white female with the past medical history of breast cancer status post right breast mastectomy, previous episode of pneumonia, skin cancer and ALLERGIC rhinitis, degenerative joint disease of the right knee, is status post right total knee arthroplasty. She sees Dr. 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 Patient had tried Eufflexxa injection series, and several corticosteroid injections both without benefit, she was having pain in the right knee as well as stiffness, in addition to altered gait this was affecting her back as well. Patient underwent right total knee arthroplasty on 01/08/2018, under spinal anesthesia, tolerated procedure well, seeing the patient postprocedure, awake and alert, and comfortable, sitting up in the recliner on the surgical floor. He denies any dyspnea, she is on room air, and her pulse ox is 95%, patient is afebrile, vitals are stable. On sounds are clear, no wheezing, no rhonchi, no rales. Labs were reviewed, WBC is within normal limits, hemoglobin is 13.7, lecture lites and renal profile are within normal limits. The mild discomfort in the right knee, which is El wrapped, and there is ice applied to it. Otherwise patient is calm and comfortable, her family is at the bedside. On 01/09/2018 patient seen in follow-up on the surgical floor. No breathing difficulty, no chest congestion, no chest tightness, no wheezing, no phlegm production. IS effort is 1500 mL today. The pain in the right knee is a bit more bothersome today, patient is applying ice packs, orthopedic surgery is managing the pain medications. No acute issues overnight, room air pulse ox is 96%, vital signs are stable. On 01/10/2018 patient seen again in follow-up on the surgical floor. Denies any dyspnea, lung sounds are clear to auscultation, incentive spirometry effort is 1752 2000 mL today. Afebrile, vital signs are stable, room air pulse ox is 98%. Right knee pain seems to be under better control today, the patient is full weightbearing, and has been ambulating to the bathroom. Patient was started on Coumadin for anticoagulation by orthopedic surgery, and today's INR is 1.2. Right calf soft and nontender, sensory and circulatory status intact. Arrangements are in progress for transfer to [facility] rehab today On 01/11/2018 patient seen in follow-up. She is awake, alert, denies any distress, no dyspnea, incentive spirometry effort is 3410-2101 mL today. Right leg appears to be a bit more swollen today, and Doppler ultrasound of the right leg has been ordered to rule out DVT. Otherwise circulatory and sensory status is intact. Her pain is under good control. Today's labs were reviewed, WBC 7.9 , hemoglobin is 9.5. INR is 1.4, patient continues on Coumadin for anticoagulation. Signs are stable, patient was approved for [facility] after peer to peer interview was conducted. Doppler of the right lower leg was negative for DVT. Objective - Vital Signs Vital signs: Vital Signs Temp 97.2 F L 01/11/18 07:00 Pulse 96 01/11/18 07:00 Resp 16 01/11/18 07:00 BP 109/66 01/11/18 07:00 Pulse Ox 96 01/11/18 07:00 Intake & Output 01/10/18 01/11/18 01/11/18 18:59 06:59 18:59 Intake Total 540 0 Balance 540 0 Intake: Intake, IV Titration 0 Amount Lactated Ringers 1,000 ml 0 @ 100 mls/hr IV .Q10H [facility] Rx#:[id number] Oral 540 Other: Voiding Method Toilet # Voids 2 2 2 # Bowel Movements 1 - Exam GENERAL EXAM: Alert, pleasant 67-year-old female, comfortable in no apparent distress. HEAD: Normocephalic/atraumatic. EYES: Normal reaction of pupils, equal size. Conjunctiva pink, sclera white. NOSE: Clear with pink turbinates. THROAT: No erythema or exudates. NECK: No masses, no JVD, no thyroid enlargement, no adenopathy. CHEST: No chest wall deformity. Symmetrical expansion. LUNGS: Equal air entry with no crackles, wheeze, rhonchi or dullness. CVS: Regular rate and rhythm, normal S1 and S2, no gallops, no murmurs, no rubs ABDOMEN: Soft, nontender. No hepatosplenomegaly, normal bowel sounds, no guarding or rigidity. EXTREMITIES: No clubbing, no edema, no cyanosis, 2+ pulses and upper and lower extremities. MUSCULOSKELETAL: Right knee is postsurgical knee, El wrapped, with ice. Right calf is soft, nontender, circulation and sensory status is intact, right leg is more swollen on today's exam SPINE: No scoliosis or deformity SKIN: No rashes CENTRAL NERVOUS SYSTEM: Alert and oriented -3. No focal deficits, tone is normal in all 4 extremities. PSYCHIATRIC: Alert and oriented -3. Appropriate affect. Intact judgment and insight. - Labs CBC & Chem 7: 01/11/18 06:25 Labs: Abnormal Lab Results - Last 24 Hours (Table) 01/11/18 01/11/18 Range/Units 06:25 06:25 RBC 3.09 L (3.80-5.40) m/uL Hgb 9.5 L (11.4-16.0) gm/dL Hct 29.1 L (34.0-46.0) % PT 13.3 H (9.0-12.0) sec INR 1.4 H (<1.2) Assessment and Plan Plan: Assessment: #1. Degenerative joint disease of knee, status post total right knee arthroplasty postop day 3 #2. COPD, with moderate obstruction, with underlying FEV1 of 75% of predicted, currently stable #3. Previous smoking history #4. History of breast cancer and right breast mastectomy #5. Previous episode of pneumonia #6. Seasonal rhinitis Plan: Patient is stable from pulmonary standpoint, her COPD is stable, continue encouraging incentive spirometry use. No acute events overnight, vital signs are stable, Doppler of the right lower leg was done and is negative for any evidence of DVT. Patient continues on Coumadin for anticoagulation, today's INR is 1.4. Patient has been approved for subacute rehab, and is anticipated to be transferred to [facility] and rehab today. I performed a history & physical examination of the patient and discussed their management with my nurse practitioner, Rosita Reyes. I reviewed the nurse practitioner's note and agree with the documented findings and plan of care. Lung sounds are clear. The findings and the impression was discussed with the patient. I attest to the documentation by the nurse practitioner. Time with Patient: Less than 30
[2018-01-11] MEDS ORDERED: WARFARIN 10 MG TAB PO ONE (18:00)
== END 2018-01-11 11:25 | DRG 470 ==
LOC: 2ORMAIN 06:17 → 3SUR 13:07
PROVIDERS: ADMIT Orthopaedic Surgery; ATTEND Orthopaedic Surgery
PROC: 0SRC0JA Replacement of Right Knee Joint with Synthetic Substitute, Uncemented, Open Approach (ICD-10-PCS; principal; 2018-01-09)
DX: M17.11 Unilateral primary osteoarthritis, right knee (principal); J44.9 Chronic obstructive pulmonary disease, unspecified; J30.2 Other seasonal allergic rhinitis; M21.061 Valgus deformity, not elsewhere classified, right knee; Z79.899 Other long term (current) drug therapy; Z79.82 Long term (current) use of aspirin; Z85.3 Personal history of malignant neoplasm of breast; Z85.828 Personal history of other malignant neoplasm of skin; Z90.11 Acquired absence of right breast and nipple; Z87.891 Personal history of nicotine dependence; Z87.01 Personal history of pneumonia (recurrent); Z88.8 Allergy status to other drugs, medicaments and biological substances; Z98.42 Cataract extraction status, left eye; Z98.41 Cataract extraction status, right eye; Z96.1 Presence of intraocular lens; Z80.9 Family history of malignant neoplasm, unspecified
CPT/HCPCS: 85025; 85610; 88300

== ENCOUNTER → 2018-03-26 | Outpatient (CLI) | payer MEDICARE ==
--- NOTE | 2018-03-26 10:20 | MM ---
Reason for exam: additional evaluation requested from prior study. Last mammogram was performed 1 year ago. History: Patient is postmenopausal, has history of breast cancer at age 55, and history of other cancer. Family history of breast cancer in maternal grandmother and breast cancer in mother at age 60. Implant in the right breast, December 2006. Reduction of the left breast, December 2006. Mastectomy of the right breast, October 23, 2006. Malignant right mammotome panel of the right breast, July 20, 2006. Took estrogen for 13 years 7 months beginning at age 42. Took progesterone for 13 years 7 months beginning at age 42. Took tamoxifen for 5 years beginning at age 55. Physical Findings: Nurse did not find any significant physical abnormalities on exam. MG 3D Diag Mammo W/Cad LT CC and MLO view(s) were taken of the left breast. Prior study comparison: March 23, 2017, left breast MG 3d diag mammo w/cad LT. March 02, 2016, left breast MG 3d diag mammo w/cad LT. There are scattered fibroglandular densities. Benign calcifications, stable from 2012. No significant new findings when compared with previous films. These results were verbally communicated with the patient and result sheet given to the patient on 03/26/18. ASSESSMENT: Benign, BI-RAD 2 RECOMMENDATION: Follow-up diagnostic mammogram of the left breast in 1 year.
== END | disposition home or self-care (01) ==
LOC: RADMAMWWP 09:22
PROVIDERS: ATTEND Internal Medicine Hematology & Oncology
DX: Z08 Encounter for follow-up examination after completed treatment for malignant neoplasm (principal); Z85.3 Personal history of malignant neoplasm of breast
CPT/HCPCS: 77065; G0279; 77061

== ENCOUNTER → 2018-07-11 | Outpatient (CLI) | payer MEDICARE ==
[2018-07-11 15:40] LABS: Appearance,Urine Clear (Clear); Bilirubin,Urine Negative (Negative); Blood,Urine Negative (Negative); Color,Urine Yellow; Glucose,Urine (UA) Negative (Negative); Ketones,Urine Negative (Negative); Leukocyte Esterase,Urine Negative (Negative); Nitrite,Urine Negative (Negative); PH, Urine 5.5 (5.0-8.0); Protein,Urine Trace (Negative); Specific Gravity,Urine 1.027 (1.001-1.035)
== END ==
LOC: LABPAT 14:32
PROVIDERS: ATTEND Orthopaedic Surgery
DX: Z01.812 Encounter for preprocedural laboratory examination (principal)
CPT/HCPCS: 81003; 87070

== ENCOUNTER → 2018-07-22 | Outpatient (CLI) | payer MEDICARE ==
[2018-07-22 14:34] LABS: HCT 41.5 % (34.0-46.0); HGB 13.5 gm/dL (11.4-16.0); MCH 31.6 pg (25.0-35.0); MCHC 32.6 g/dL (31.0-37.0); MCV 96.9 fL (80.0-100.0); Platelet Count 232 k/uL (150-450); RBC 4.28 m/uL (3.80-5.40); RDW 13.5 % (11.5-15.5); WBC 5.6 k/uL (3.8-10.6)
[2018-07-22 14:44] LABS: Potassium 4.4 mmol/L (3.5-5.1)
[2018-07-22 14:47] LABS: INR 0.9 (<1.2); Partial Thromboplastin Time 23.5 sec (22.0-30.0); Prothrombin Time 9.5 sec (9.0-12.0)
[2018-07-22 16:51] LABS: Albumin 3.5 g/dL (3.5-5.0); Calcium 9.4 mg/dL (8.4-10.2); Total Bilirubin 0.4 mg/dL (0.2-1.3); Total Protein 6.2 g/dL (6.3-8.2)
== END ==
LOC: LABPAT 13:12
PROVIDERS: ATTEND Orthopaedic Surgery
DX: Z01.812 Encounter for preprocedural laboratory examination (principal)
CPT/HCPCS: 36415; 80051; 82040; 82247; 82310; 82565; 82947; 84075; 84155; 84450; 84460; 84520; 85027; 85610; 85730

== ENCOUNTER 2018-07-29 07:15 | Inpatient (IN) | payer MEDICARE ==
[~2018-07-29 07:15] MED LIST changes: +ACETAMINOPHEN TAB 500 MG TAB PO ONE; +HYDROmorphone 0.5 MG/0.5 ML SYRINGE IVP PRN; -LACTATED RINGERS 1,000 ML IV SCH; -LIDOCAINE 1% 20 ML VIAL (10MG/ML) FOR IV START INTRADERMA PRN; +MELOXICAM 7.5 MG TAB PO ONE; +MIDAZOLAM (PF) 2 MG/2 ML VIAL IV PRN; -MIDAZOLAM 2 MG/2 ML VIAL IV PRN; +ROPIVACAINE 246.25 MG, EPINEPHrine 0.5 MG, KETOROLAC 30 MG, cloNIDine HCL/PF 80 MCG, WA... MISCELLANE ONE; +TRANEXAMIC ACID 1,000 MG in SODIUM CHLORIDE 0.9% 50 ML IVPB ONE
[2018-07-29] MEDS: LACTATED RINGERS 1,000 ML IV SCH (08:02)
[2018-07-29] MEDS ORDERED: LIDOCAINE 1% 20 ML VIAL (10MG/ML) FOR IV START INTRADERMA ONE (08:03)
[2018-07-29] MEDS ORDERED: HYDROcodone/APAP 5-325MG 1 EACH TAB PO PRN (09:12)
[2018-07-29] MEDS ORDERED: HYDROmorphone 0.5 MG/0.5 ML SYRINGE IVP PRN ×3 (09:12)
[2018-07-29] MEDS ORDERED: NALOXONE 0.4 MG/ML 1 ML VIAL IV PRN (09:12)
[2018-07-29] MEDS ORDERED: hydrOXYzine PAMOATE 25 MG CAP PO PRN (09:12)
[2018-07-29] MEDS ORDERED: MAGNESIUM HYDROXIDE 2,400 MG/10 ML CUP PO PRN (09:12)
[2018-07-29] MEDS ORDERED: DIAZEPAM 5 MG TAB PO PRN (09:12)
[2018-07-29] MEDS ORDERED: ONDANSETRON 4 MG/2 ML VIAL IVP PRN (09:12)
[2018-07-29] MEDS ORDERED: MIDAZOLAM 2 MG/2 ML VIAL ONE (09:36)
[2018-07-29] MEDS ORDERED: fentaNYL (PF) 50 MCG/ML 2 ML AMP ONE (09:36)
[2018-07-29] MEDS ORDERED: HEPARIN SODIUM,PORCINE 10,000 UNIT/ML 1 ML VIAL ONE (09:36)
[2018-07-29] MEDS ORDERED: SODIUM CHLORIDE 0.9% IRRIG 1,000 ML BTL IRRIGATION ONE (09:36)
[2018-07-29] MEDS ORDERED: SODIUM CHLORIDE 0.9% 100 ML BAG ONE (09:36)
[2018-07-29] MEDS ORDERED: TRANEXAMIC ACID 1,000 MG/10 ML VIAL ONE (09:36)
[2018-07-29] MEDS ORDERED: PROPOFOL 10 MG/ML 20 ML VIAL IV ONE (09:36)
[2018-07-29] MEDS ORDERED: ceFAZolin 3,000 MG in SODIUM CHLORIDE 0.9% IRRIGATIO 3,000 ML IRRIGATION ONE (09:40)
--- NOTE | 2018-07-29 11:10 | P.OP ---
Date of Procedure: 07/29/18 Preoperative Diagnosis: Severe osteoarthritis right hip Postoperative Diagnosis: Severe osteoarthritis right hip Procedure(s) Performed: Right total hip arthroplasty direct anterior approach Implants: Ram and nephew Polarstem size 3 standard Ram & Nephew R3, 3 hole acetabular shell, 52 mm Ram & Nephew reflection 6.5 mm cancellus screw, 20 mm 2 Ram [employer] Nephew R3, XLPE 20 acetabular liner Ram & Nephew Oxinium femoral head 36 m, +0 All components were press-fit. The articulation is Oxinium on polyethylene. Anesthesia: spinal Surgeon: Rogelio Link Gang Head Saw Operator #1: Rama Shah Estimated Blood Loss (ml): 100 Pathology: other (Femoral head) Condition: stable Disposition: PACU Indications for Procedure: After failure of conservative treatment we discussed the surgical and nonsurgical treatment options at length. Patient wishes to proceed with a total hip arthroplasty with a direct anterior approach. Complications specific to this procedure were discussed at length, including but not limited to infection, leg length discrepancy, dislocation, and nerve injury. Patient is aware of all these complications and informed consent was obtained Operative Findings: The operative findings are consistent with severe osteoarthritis of the right hip Description of Procedure: Patient was seen and evaluated in the preoperative area, consent was reviewed, and the surgical site was marked with a skin marker. Patient was then brought to the operating room and given prophylactic antibiotics intravenously. 1 g of Tranexamic acid was also given. A spinal anesthetic was administered by the anesthesia department. The patient was then placed on the [place] table with the bony prominences well-padded. The hip area was then prepped and draped in usual sterile fashion. A universal timeout was then performed, which confirmed the patient's name, surgical site, ALLERGIES, and procedure being performed. Next the incision site was located at 1 cm distal and 1 cm lateral to the anterior superior iliac spine. The skin and subcutaneous tissues were sharply incised. Incision was carefully dissected down to the fascia overlying the tensor fascia kervin muscle. This fascia was then incised in line with the incision. Next, using blunt finger dissection, the tensor fascia kervin muscle was dissected off its investing fascia. The muscle was then carefully retracted laterally with a cobra retractor over the lateral neck of the femur. Next, the circumflex vessels were identified and cauterized using the AquaMantis device. The anterior hip capsule was then exposed. The capsule was then opened and an inverted T fashion. Cobra retractors were then placed intracapsularly. The proximal femur was then visualized. The femoral neck was then osteotomized appropriate level above the lesser trochanter. Small amount of traction was placed with the [place] table. A small wedge of bone was then removed from the remaining femoral head. Next, using a corkscrew femoral head was easily removed from the acetabulum. On gross visual inspection, the femoral head had complete loss of articular cartilage in multiple periarticular osteophytes. Attention was then turned to the acetabulum. the acetabulum was exposed and any remaining labrum was excised. Sequential reaming of the acetabulum was performed using fluoroscopic guidance. When the appropriate size was reached, a trial was then placed. The position and fit of the trial was checked with fluoroscopy. The trial was then removed. Then, using fluoroscopic guidance, the final implant was impacted at 20 of anteversion and 40 of abduction, and fully seated in the acetabulum. 2 screws were then placed in the acetabulum. Again fluoroscopy was used to check position of the screws. Next, the liner was then impacted, with a 20 elevated liner located in the anterior superior quadrant. Component locking was confirmed. Attention was then directed to the femur. With the aid of the [place] table, the femur was externally rotated to approximately 130, extended, and abducted under the opposite leg. A side hook was then placed under the proximal femur, and the side hook elevator was used to elevate the proximal femur. Retractors were then placed. A capsular release was performed, as well as a release of the conjoined tendon, which afforded excellent visualization of the proximal femur. Next, a box osteotome was used to lateralize the proximal femur. A irradiated fuel handler was then used to locate the femoral canal. Sequential broaching was then performed with appropriate size which afforded excellent fixation in the proximal femur. A trial was then placed with appropriate head and neck, and the hip was gently reduced with the aid of the [place] table. Fluoroscopy was then used to check position of the components, as well as to ensure equal leg lengths. The hip was then gently dislocated and the trials were then removed. Final implants were then impacted and the hip was again reduced. Final fluoroscopic x-rays confirmed that the components were in anatomic position, as well as equal leg lengths. The hip was also taken through range of motion, and found to be stable. The hip was then copiously irrigated with antibiotic solution with pulsatile lavage. The hip was then irrigated with Irrisept solution. The soft tissues were then injected with a ropivacaine solution, which consisted of 246.25 mg of ropivacaine, 0.5 mg of epinephrine, 30 mg of Toradol, 80 g of clonidine, and 48.45 mL of sterile water, for a total of 100 mL of fluid injected. A second dose of 1 g of Tranexamic acid was also given. the fascia was then closed with 2-0 strata fix suture. The subcutaneous tissue was closed with 3-0 Vicryl. The subcuticular tissue was closed with 3-0 strata fix suture. The skin was then closed with Dermabond glue and a sterile silver dressing. The patient was then transferred to the recovery room in stable condition. The assistant store leader DEWAYNE Hensley was required due to the complexity of surgery, and the need for skilled surgical supply assistant for positioning, draping, exposure, retraction, and closure of the wound.
--- NOTE | 2018-07-29 11:12 | FL ---
EXAMINATION TYPE: FL guidance operating room DATE OF EXAM: 07/29/2018 HISTORY: Flouroscopy time 38 seconds of fluoroscopy provided. IMPRESSION: 1. Fluoroscopy time.
--- NOTE | 2018-07-29 11:12 | XR ---
EXAMINATION TYPE: XR Hip Limited RT DATE OF EXAM: 07/29/2018 COMPARISON: NONE HISTORY: Postop TECHNIQUE: One view submitted. FINDINGS: There is a postsurgical change in near anatomic alignment. There is soft tissue edema and emphysema. IMPRESSION: 1. Postoperative change. Appears in near-anatomic alignment.
[2018-07-29] MEDS ORDERED: LACTATED RINGERS 1,000 ML IV ONE (11:33)
--- NOTE | 2018-07-29 12:21 | XR ---
EXAMINATION TYPE: XR Hip Limited RT DATE OF EXAM: 07/29/2018 CLINICAL HISTORY: Right hip pain and osteoarthritis. TECHNIQUE: Single AP portable view of right hip is obtained immediately postoperatively. COMPARISON: None. FINDINGS: Metallic hardware from right hip arthroplasty is seen and appears satisfactory in alignment and position. There is evidence of recent surgery with subcutaneous gas noted laterally. IMPRESSION: Metallic hardware from right hip arthroplasty is satisfactory in position.
[2018-07-29 12:39] VITALS: BMI 33.6
--- NOTE | 2018-07-29 14:11 | P.CNPUL ---
History of Present Illness Consult date: 07/29/18 Reason for consult: other Chief complaint: Right hip arthroplasty History of present illness: A pleasant 67-year-old female patient, a primary of Dr Eller , was suffering from severe osteoarthritis of the right hip with ongoing pain. The patient was taken to the operating room and the patient underwent a right total hip arthroplasty through the direct anterior approach. The patient is currently being seen postop. Estimated blood loss was 100 mL. The patient is hemodynamically stable. Blood pressure is main stable throughout the procedure. Her pain is under good control. She has a combination of note, and Dilaudid for pain control. No nausea. No vomiting. No abdominal pain. No chest pain. No shortness of breath. No aspiration. She was able to eat lunch outpatient medications have been ordered resume. IV Was Given for Antibiotic Prophylaxis. She Is on Oral Aspirin 325 Mg by Mouth Daily. Review of Systems Constitutional: Denies chills, Denies fever Eyes: denies as per HPI, denies blurred vision, denies bulging eye, denies decreased vision, denies diplopia, denies discharge, denies dry eye, denies irritation, denies itching, denies pain, denies photophobia, denies loss of peripheral vision, denies loss of vision, denies tunnel vision/blind spots Ears: deny: decreased hearing, ear discharge, earache, tinnitus Ears, nose, mouth and throat: Denies headache, Denies sore throat Breasts: absent: as per HPI, change in shape, gynecomastia, masses, nipple discharge, pain, skin changes, swelling Cardiovascular: Denies chest pain, Denies shortness of breath Respiratory: Reports as per HPI Gastrointestinal: Denies abdominal pain, Denies diarrhea, Denies nausea, Denies vomiting Genitourinary: Reports as per HPI Menstruation: Reports as per HPI Musculoskeletal: Reports as per HPI Musculoskeletal: bilateral: hip pain, absent: ankle pain, ankle stiffness, ankle swelling, as per HPI, elbow pain, elbow stiffness, elbow swelling, foot pain, foot stiffness, foot swelling, hand pain, hand stiffness, hand swelling, hip stiffness, hip swelling, knee pain, knee stiffness, knee swelling, shoulder pain, shoulder stiffness, shoulder swelling, wrist pain, wrist stiffness, wrist swelling Integumentary: Denies pruritus, Denies rash Neurological: Reports as per HPI Psychiatric: Reports as per HPI Endocrine: Reports as per HPI Hematologic/Lymphatic: Reports as per HPI Allergic/Immunologic: Reports as per HPI Past Medical History Past Medical History: Cancer, Osteoarthritis (OA) Additional Past Medical History / Comment(s): b/p normally runs low, HX BREAST- no chemo or radiation 2006,AND SKIN CANCER,varicose veins History of Any Multi-Drug Resistant Organisms: None Reported Past Surgical History: Breast Surgery, Orthopedic Surgery (Knee replacement surgery) Additional Past Surgical History / Comment(s): COLONOSCOPY. BILAT CTR. REMOVAL BASAL CELL CARCINOMA LT ARM. RT MASTECTOMY. RT BUNIONECTOMY, TRK Past Anesthesia/Blood Transfusion Reactions: No Reported Reaction Additional Past Anesthesia/Blood Transfusion Reaction / Comment(s): STATES ONLY TAKE A LITTLE ANESTHESIA TO BE EFFECTIVE,no hx blood transfusions Past Psychological History: No Psychological Hx Reported Smoking Status: Former smoker Past Alcohol Use History: None Reported Additional Past Alcohol Use History / Comment(s): QUIT SMOKING AGE 29,smoked approx 10 yrs 1 1/2ppd Past Drug Use History: None Reported - Past Family History Mother Family Medical History: Cancer Additional Family Medical History / Comment(s): breast CA Medications and Allergies Home Medications Medication Instructions Recorded Confirmed Type Calcium Citrate/Vitamin D3 1 tab PO HS 01/03/18 07/29/18 History [Calcitrate + Vit D Caplet] Flaxseed Oil [[place]-3 Flaxseed Oil] 1,000 mg PO DAILY 01/03/18 07/29/18 History Montelukast [Singulair] 10 mg PO HS 01/03/18 07/29/18 History Acetaminophen/Diphenhydramine 1 tab PO HS 07/24/18 07/29/18 History [Tylenol PM 500-25mg] Aspirin 81 mg PO DAILY 07/24/18 07/29/18 History Naproxen [Naprosyn] 500 mg PO Q12HR 07/24/18 07/29/18 History HYDROcodone/APAP 5-325MG [[place] 1 - 2 tab PO Q6HR PRN 07/25/18 07/29/18 History 5-325] traMADol HCL [Ultram] 50 mg PO Q6HR PRN 07/25/18 07/29/18 History Allergies Allergy/AdvReac Type Severity Reaction Status Date / Time venlafaxine [From Effexor] AdvReac LIGHTHEADED Verified 07/29/18 11:54 AND DIZZY Physical Exam Vitals: Vital Signs Temp Pulse Resp BP BP Pulse Ox 07/29/18 12:00 62 20 109/57 99 07/29/18 11:45 60 20 111/59 99 07/29/18 11:30 69 18 97/50 96 07/29/18 11:23 98.0 F 70 16 93/50 97 07/29/18 07:26 98.9 F 77 16 129/63 96 Intake and Output 07/28/18 07/29/18 07/29/18 22:59 06:59 14:59 Intake Total 1001 Output Total 100 Balance 901 Intake: IV 1001 Output: Estimated Blood Loss 100 The patient appeared well nourished and normally developed. Vital signs as documented. Head exam is unremarkable. No scleral icterus or corneal arcus noted. Neck is without jugular venous distension, thyromegaly, or carotid bruits. Carotid upstrokes are brisk bilaterally. Lungs are clear to auscultation and percussion. Cardiac exam reveals the PMI to be normally sized and situated. Rhythm is regular. First and second heart sounds normal. No murmurs, rubs or gallops. Abdominal exam reveals normal bowel sounds, no masses , no organomegaly and no aortic enlargement. Extremities are nonedematous and both femoral and pedal pulses are normal. The surgical site over the right hip area dry clean and intact. The patient is neurovascularly intact in the right lower extremity.Examination of the skin revealed no evidence of significant rashes, suspicious appearing nevi or other concerning lesions. Neurologically the patient is awake and alert and there is no focal neuro deficit. Psychiatric it is anxiety or depression. Assessment and Plan Plan: Assessment 1 severe osteoarthritis of the right hip 2 status post right total hip arthroplasty, the patient is postop day #1 3 postoperative pain which is currently under good control 4 COPD/asthma currently mild inactive and stable with an FEV1 of 75% of predicted 5 history of smoking 6 history of breast cancer with a previous right breast mastectomy 7 seasonal rhinitis Plan The patient is stable. The patient is doing extremely well with adequate pain control. Continue oral aspirin. Regular diet. [place] for pain control and Dilaudid for breakthrough pain. The patient will be staying in hospital for a few days and ultimately she is interested in going to monitor with [facility] for further rehabilitation. Outpatient medications have been ordered resume. The patient is currently doing well, awake and stable.
[2018-07-29] MEDS: HYDROcodone/APAP 5-325MG 1 EACH TAB PO PRN ×2 (14:39→21:53)
[2018-07-29] MEDS: ceFAZolin IN SWFI 2 GM/20 ML SYRINGE IVP SCH (18:21)
[2018-07-29] MEDS: SENNOSIDES-DOCUSATE SODIUM 1 EACH TAB PO SCH (21:52)
[2018-07-29] MEDS: ASPIRIN 325 MG TAB PO SCH (21:52)
[2018-07-29] MEDS: SODIUM CHLORIDE 0.9% 1,000 ML IV SCH (23:30)
[2018-07-30] MEDS: ceFAZolin IN SWFI 2 GM/20 ML SYRINGE IVP SCH (01:37)
[2018-07-30] MEDS: LACTATED RINGERS 1,000 ML IV SCH (01:38)
[2018-07-30] MEDS: SODIUM CHLORIDE 0.9% 1,000 ML IV SCH ×2 (01:41→17:56)
[2018-07-30] MEDS: HYDROcodone/APAP 5-325MG 1 EACH TAB PO PRN ×4 (05:30→23:38)
[2018-07-30 08:07] LABS: Basophils % (A) 0 %; Eosinophils # (A) 0.1 k/uL (0-0.7); Eosinophils % (A) 1 %; HCT 34.1 % (34.0-46.0); HGB 10.8 gm/dL (11.4-16.0); Lymphocytes # (A) 1.7 k/uL (1.0-4.8); Lymphocytes % (A) 21 %; MCH 30.8 pg (25.0-35.0); MCHC 31.8 g/dL (31.0-37.0); MCV 96.9 fL (80.0-100.0); Mean Platelet Volume 8.5; Monocytes # (A) 0.5 k/uL (0-1.0); Monocytes % (A) 7 %; Neutrophils # (A) 5.4 k/uL (1.3-7.7); Neutrophils % (A) 69 %; Platelet Count 171 k/uL (150-450); RBC 3.52 m/uL (3.80-5.40); RDW 13.4 % (11.5-15.5); WBC 7.8 k/uL (3.8-10.6)
--- NOTE | 2018-07-30 09:11 | P.PN ---
Subjective Progress Note Date: 07/30/18 This is a 67-year-old female who is status post right total hip arthroplasty. This is postoperative day #1. Patient is seen and evaluated at bedside with Dr. Rogelio Link. Patient states that her pain is well-controlled and she has been up and walking with physical therapy. Patient denies any fever/chills, numbness, weakness, tingling, abdominal pain, shortness of breath or chest pain. Objective - Vital Signs Vital signs: Vital Signs Temp 97.6 F 07/30/18 07:46 Pulse 56 L 07/30/18 07:46 Resp 14 07/30/18 07:46 BP 99/58 07/30/18 07:46 Pulse Ox 99 07/30/18 07:46 Intake & Output 07/29/18 07/30/18 07/30/18 18:59 06:59 18:59 Intake Total 1001 455 240 Output Total 500 400 Balance 501 455 -160 Intake: IV 1001 Intake, IV Titration 455 Amount Sodium Chloride 0.9% 1, 455 000 ml @ 65 mls/hr IV . [id number] [facility]ER Rx#:[id number] Oral 240 Output: Urine 400 400 Estimated Blood Loss 100 Other: Voiding Method Toilet # Voids 1 1 - Exam Vital signs are stable. Patient is in no acute distress and is alert and oriented 3. Calf is soft and nontender to palpation. Dressing is clean, dry, and intact. Patient has full foot and ankle motion without pain or difficulty. Neurovascular status and circulatory status are intact. - Labs CBC & Chem 7: 07/30/18 07:19 Labs: Abnormal Lab Results - Last 24 Hours (Table) 07/30/18 Range/Units 07:19 RBC 3.52 L (3.80-5.40) m/uL Hgb 10.8 L (11.4-16.0) gm/dL Assessment and Plan Assessment: History of breast cancer and mastectomy. History of skin cancer COPD/asthma. Seasonal rhinitis. Plan: Continue routine postop care and pain control. Continue anticoagulation with aspirin. Weightbearing as tolerated with a walker. Leave dressing in place for 10 days. Patient is awaiting discharge to rehab for the next 1-2 days.
[2018-07-30] MEDS: MELOXICAM 7.5 MG TAB PO SCH (10:44)
[2018-07-30] MEDS: ASPIRIN 325 MG TAB PO SCH ×2 (10:45→21:30)
--- NOTE | 2018-07-30 18:28 | P.PN ---
Subjective Progress Note Date: 07/30/18 Principal diagnosis: Severe osteoarthritis of the right hip, post right hip arthroplasty A pleasant 67-year-old female patient, a primary of Dr Eller , was suffering from severe osteoarthritis of the right hip with ongoing pain. The patient was taken to the operating room and the patient underwent a right total hip arthroplasty through the direct anterior approach. The patient is currently being seen postop. Estimated blood loss was 100 mL. The patient is hemodynamically stable. Blood pressure is main stable throughout the procedure. Her pain is under good control. She has a combination of note, and Dilaudid for pain control. No nausea. No vomiting. No abdominal pain. No chest pain. No shortness of breath. No aspiration. She was able to eat lunch outpatient medications have been ordered resume. IV Was Given for Antibiotic Prophylaxis. She Is on Oral Aspirin 325 Mg by Mouth Daily. On 07/30/2018 patient seen in follow-up on medical surgical floor. She sits up in the recliner, in no acute distress, she has been up ambulating with a walker and tolerating activity well. Some mild discomfort in the anterior right hip, no acute distress. Room air pulse ox is 98%, afebrile, hemodynamically stable, lung sounds are clear to auscultation, incentive spirometer effort is [id number] today. Today's labs showed white blood cell count of 7.8, hemoglobin of 10.8. No new chest x-rays. Objective - Vital Signs Vital signs: Vital Signs Temp 97.4 F L 07/30/18 15:00 Pulse 71 07/30/18 15:00 Resp 16 07/30/18 15:00 BP 103/55 07/30/18 15:00 Pulse Ox 98 07/30/18 15:00 Intake & Output 07/29/18 07/30/18 07/30/18 18:59 06:59 18:59 Intake Total 1001 455 713 Output Total 500 400 Balance 501 455 313 Intake: IV 1001 Intake, IV Titration 455 Amount Sodium Chloride 0.9% 1, 455 000 ml @ 65 mls/hr IV . [id number] R[facility] Rx#:[id number] Oral 713 Output: Urine 400 400 Estimated Blood Loss 100 Other: Voiding Method Toilet # Voids 1 2 - Exam GENERAL EXAM: Alert, pleasant, 67-year-old white female sitting up in the recliner comfortable in no apparent distress. HEAD: Normocephalic/atraumatic. EYES: Normal reaction of pupils, equal size. Conjunctiva pink, sclera white. NOSE: Clear with pink turbinates. THROAT: No erythema or exudates. NECK: No masses, no JVD, no thyroid enlargement, no adenopathy. CHEST: No chest wall deformity. Symmetrical expansion. LUNGS: Equal air entry with no crackles, wheeze, rhonchi or dullness. CVS: Regular rate and rhythm, normal S1 and S2, no gallops, no murmurs, no rubs ABDOMEN: Soft, nontender. No hepatosplenomegaly, normal bowel sounds, no guarding or rigidity. EXTREMITIES: No clubbing, no edema, no cyanosis, 2+ pulses and upper and lower extremities. Right hip incision is covered with a dressing MUSCULOSKELETAL: Muscle strength and tone normal. SPINE: No scoliosis or deformity SKIN: No rashes CENTRAL NERVOUS SYSTEM: Alert and oriented -3. No focal deficits, tone is normal in all 4 extremities. PSYCHIATRIC: Alert and oriented -3. Appropriate affect. Intact judgment and insight. - Labs CBC & Chem 7: 07/30/18 07:19 Labs: Abnormal Lab Results - Last 24 Hours (Table) 07/30/18 Range/Units 07:19 RBC 3.52 L (3.80-5.40) m/uL Hgb 10.8 L (11.4-16.0) gm/dL Assessment and Plan Plan: Assessment: 1 severe osteoarthritis of the right hip 2 status post right total hip arthroplasty, the patient is postop day #2 3 postoperative pain which is currently under good control 4 COPD/asthma currently mild inactive and stable with an FEV1 of 75% of predicted 5 history of smoking 6 history of breast cancer with a previous right breast mastectomy 7 seasonal rhinitis Plan: Patient is doing well, lung sounds are clear to auscultation, she is on room air , she is working on her incentive spirometer, no difficulty breathing, no chest pain, she has been up ambulating. Vital signs are stable. Did complain of insomnia last night, we'll order Restoril on as-needed basis. Subacute rehab on , to [facility] rehab. I performed a history & physical examination of the patient and discussed their management with my nurse practitioner, Rosita Reyes. I reviewed the nurse practitioner's note and agree with the documented findings and plan of care. Lung sounds are positive for clear sounds. The findings and the impression was discussed with the patient. I attest to the documentation by the nurse practitioner. Time with Patient: Less than 30
[2018-07-30] MEDS: TEMAZEPAM 15 MG CAP PO SCH (21:30)
[2018-07-30] MEDS: SENNOSIDES-DOCUSATE SODIUM 1 EACH TAB PO SCH (21:30)
[2018-07-31] MEDS: LACTATED RINGERS 1,000 ML IV SCH (05:21)
[2018-07-31] MEDS: HYDROcodone/APAP 5-325MG 1 EACH TAB PO PRN ×3 (05:25→22:07)
--- NOTE | 2018-07-31 09:21 | P.PN ---
Subjective Progress Note Date: 07/31/18 This is a 67-year-old female who is status post right total hip arthroplasty. This is postoperative day #2. Patient is seen and evaluated at bedside with Dr. Rogelio Link. Patient states that her pain is well-controlled and she has been up and walking with physical therapy. Patient denies any new complaints today. Patient denies any fever/chills, numbness, weakness, tingling, abdominal pain, shortness of breath or chest pain. Objective - Vital Signs Vital signs: Vital Signs Temp 98.3 F 07/31/18 07:27 Pulse 83 07/31/18 07:27 Resp 16 07/31/18 07:27 BP 104/50 07/31/18 07:27 Pulse Ox 95 07/31/18 07:27 Intake & Output 07/30/18 07/31/18 07/31/18 18:59 06:59 18:59 Intake Total 713 1180 Output Total 400 Balance 313 1180 Intake: Oral 713 1180 Output: Urine 400 Other: Voiding Method Toilet # Voids 2 2 - Exam Vital signs are stable. Patient is in no acute distress and is alert and oriented 3. Calf is soft and nontender to palpation. Dressing is clean, dry, and intact. Patient has full foot and ankle motion without pain or difficulty. Neurovascular status and circulatory status are intact. - Labs CBC & Chem 7: 07/30/18 07:19 Assessment and Plan Assessment: History of breast cancer and mastectomy. History of skin cancer COPD/asthma. Seasonal rhinitis. (1) Osteoarthritis of right hip Current Visit: Yes Status: Acute Code(s): M16.11 - UNILATERAL PRIMARY OSTEOARTHRITIS, RIGHT HIP SNOMED Code(s): 014760820664777 (2) Status post total replacement of right hip Current Visit: Yes Status: Acute Code(s): Z96.641 - PRESENCE OF RIGHT ARTIFICIAL HIP JOINT SNOMED Code(s): 370413796052 Plan: Continue routine postop care and pain control. Continue anticoagulation with aspirin. Weightbearing as tolerated with a walker. Leave dressing in place for 10 days. Patient is awaiting discharge to rehab tomorrow.
[2018-07-31] MEDS: SODIUM CHLORIDE 0.9% 1,000 ML IV SCH (09:29)
[2018-07-31] MEDS: MELOXICAM 7.5 MG TAB PO SCH (09:33)
[2018-07-31] MEDS: ASPIRIN 325 MG TAB PO SCH ×2 (09:33→22:07)
--- NOTE | 2018-07-31 16:27 | P.PN ---
Subjective Progress Note Date: 07/31/18 Principal diagnosis: Severe osteoarthritis of the right hip, post right hip arthroplasty A pleasant 67-year-old female patient, a primary of Dr Eller , was suffering from severe osteoarthritis of the right hip with ongoing pain. The patient was taken to the operating room and the patient underwent a right total hip arthroplasty through the direct anterior approach. The patient is currently being seen postop. Estimated blood loss was 100 mL. The patient is hemodynamically stable. Blood pressure is main stable throughout the procedure. Her pain is under good control. She has a combination of note, and Dilaudid for pain control. No nausea. No vomiting. No abdominal pain. No chest pain. No shortness of breath. No aspiration. She was able to eat lunch outpatient medications have been ordered resume. IV Was Given for Antibiotic Prophylaxis. She Is on Oral Aspirin 325 Mg by Mouth Daily. On 07/30/2018 patient seen in follow-up on medical surgical floor. She sits up in the recliner, in no acute distress, she has been up ambulating with a walker and tolerating activity well. Some mild discomfort in the anterior right hip, no acute distress. Room air pulse ox is 98%, afebrile, hemodynamically stable, lung sounds are clear to auscultation, incentive spirometer effort is [phone] today. Today's labs showed white blood cell count of 7.8, hemoglobin of 10.8. No new chest x-rays. On 07/31/2018 patient seen in follow-up. Doing well, she slept well last night , no respiratory difficulty, she is on room air, calm and comfortable, she is working on her incentive spirometer, room air pulse ox is 95%, afebrile, she ambulated in the hallway with a walker and assistance, no new labs the chest x- rays, vital signs are stable. Anticipate discharge to subacute rehab tomorrow. Objective - Vital Signs Vital signs: Vital Signs Temp 98.3 F 07/31/18 07:27 Pulse 83 07/31/18 07:27 Resp 16 07/31/18 07:27 BP 104/50 07/31/18 07:27 Pulse Ox 95 07/31/18 07:27 Intake & Output 07/30/18 07/31/18 07/31/18 18:59 06:59 18:59 Intake Total 713 1180 480 Output Total 400 Balance 313 1180 480 Intake: Oral 713 1180 480 Output: Urine 400 Other: Voiding Method Toilet # Voids 2 2 2 - Exam GENERAL EXAM: Alert, pleasant, 67-year-old white female sitting up in the recliner comfortable in no apparent distress. HEAD: Normocephalic/atraumatic. EYES: Normal reaction of pupils, equal size. Conjunctiva pink, sclera white. NOSE: Clear with pink turbinates. THROAT: No erythema or exudates. NECK: No masses, no JVD, no thyroid enlargement, no adenopathy. CHEST: No chest wall deformity. Symmetrical expansion. LUNGS: Equal air entry with no crackles, wheeze, rhonchi or dullness. CVS: Regular rate and rhythm, normal S1 and S2, no gallops, no murmurs, no rubs ABDOMEN: Soft, nontender. No hepatosplenomegaly, normal bowel sounds, no guarding or rigidity. EXTREMITIES: No clubbing, no edema, no cyanosis, 2+ pulses and upper and lower extremities. Right hip incision is covered with a dressing MUSCULOSKELETAL: Muscle strength and tone normal. SPINE: No scoliosis or deformity SKIN: No rashes CENTRAL NERVOUS SYSTEM: Alert and oriented -3. No focal deficits, tone is normal in all 4 extremities. PSYCHIATRIC: Alert and oriented -3. Appropriate affect. Intact judgment and insight. - Labs CBC & Chem 7: 07/30/18 07:19 Assessment and Plan Plan: Assessment: 1 severe osteoarthritis of the right hip 2 status post right total hip arthroplasty, the patient is postop day #2 3 postoperative pain which is currently under good control 4 COPD/asthma currently mild inactive and stable with an FEV1 of 75% of predicted 5 history of smoking 6 history of breast cancer with a previous right breast mastectomy 7 seasonal rhinitis Plan: Doing well, no specific complaints, pain is under good control, working on her incentive spirometer, tolerating ambulation, vital signs are stable, anticipate discharge to subacute rehab tomorrow. I performed a history & physical examination of the patient and discussed their management with my nurse practitioner, Rosita Reyes. I reviewed the nurse practitioner's note and agree with the documented findings and plan of care. Lung sounds are positive for clear sounds. The findings and the impression was discussed with the patient. I attest to the documentation by the nurse practitioner. Time with Patient: Less than 30
[2018-07-31] MEDS: TEMAZEPAM 15 MG CAP PO SCH (22:07)
[2018-07-31] MEDS: SENNOSIDES-DOCUSATE SODIUM 1 EACH TAB PO SCH (22:07)
[2018-08-01] MEDS: SODIUM CHLORIDE 0.9% 1,000 ML IV SCH ×2 (01:03→16:11)
[2018-08-01] MEDS: HYDROcodone/APAP 5-325MG 1 EACH TAB PO PRN ×3 (06:17→21:52)
--- NOTE | 2018-08-01 08:21 | P.DS ---
Providers Date of admission: 07/29/18 07:15 Expected date of discharge: 08/01/18 Attending physician: Rogelio Link Consults: 07/29/18 09:12 Consult Physician Routine Consulting Provider: Gabriela Eller Consult Reason/Comments: medical management Do you want consulting provider notified?: Yes Primary care physician: Gabriela Eller - Discharge Diagnosis(es) (1) Osteoarthritis of right hip Current Visit: Yes Status: Acute (2) Status post total replacement of right hip Current Visit: Yes Status: Acute Hospital Course: This is a 67-year-old female with known history of degenerative arthritis of the right hip. The patient presents for evaluation. After discussion and consideration patient elects to proceed with total hip arthroplasty. The patient is seen preoperatively by Dr. Link and medically cleared for surgery by their primary care physician. Patient is admitted to [facility] on 07/29/2018 for total hip arthroplasty. The procedures performed without complication or sequelae. The patient is doing well postoperatively. Labs and vital signs are stable on day of discharge. On day of discharge patient's hip incision is healing well. There is minimal erythema. There is no drainage noted at this time. There is minimal soft tissue swelling to the hip and thigh. Patient has full foot and ankle motion without difficulty or pain. Neurovascular status to the right lower extremity is intact. Patient is discharged to rehab in good condition. Please see med rec for accurate list of home medications. Plan - Discharge Summary Discharge Rx Participant: Yes New Discharge Prescriptions: New Aspirin 325 mg PO BID #60 tab HYDROcodone/APAP 5-325MG [[place] 5-325] 1 - 2 tab PO Q6HR PRN #56 tab PRN Reason: Pain Sennosides [Senokot] 1 tab PO BID #60 tablet No Action Montelukast [Singulair] 10 mg PO HS Flaxseed Oil [[place]-3 Flaxseed Oil] 1,000 mg PO DAILY Calcium Citrate/Vitamin D3 [Calcitrate + Vit D Caplet] 1 tab PO HS Naproxen [Naprosyn] 500 mg PO Q12HR Aspirin 81 mg PO DAILY Acetaminophen/Diphenhydramine [Tylenol PM 500-25mg] 1 tab PO HS traMADol HCL [Ultram] 50 mg PO Q6HR PRN PRN Reason: Pain HYDROcodone/APAP 5-325MG [[place] 5-325] 1 - 2 tab PO Q6HR PRN PRN Reason: Pain Discharge Medication List Calcium Citrate/Vitamin D3 [Calcitrate + Vit D Caplet] 1 tab PO HS 01/03/18 [ History] Flaxseed Oil [[place]-3 Flaxseed Oil] 1,000 mg PO DAILY 01/03/18 [History] Montelukast [Singulair] 10 mg PO HS 01/03/18 [History] Acetaminophen/Diphenhydramine [Tylenol PM 500-25mg] 1 tab PO HS 07/24/18 [ History] Aspirin 81 mg PO DAILY 07/24/18 [History] Naproxen [Naprosyn] 500 mg PO Q12HR 07/24/18 [History] HYDROcodone/APAP 5-325MG [[place] 5-325] 1 - 2 tab PO Q6HR PRN 07/25/18 [History] traMADol HCL [Ultram] 50 mg PO Q6HR PRN 07/25/18 [History] Aspirin 325 mg PO BID #60 tab 07/31/18 [Rx] HYDROcodone/APAP 5-325MG [[place] 5-325] 1 - 2 tab PO Q6HR PRN #56 tab 07/31/18 [ Rx] Sennosides [Senokot] 1 tab PO BID #60 tablet 07/31/18 [Rx] Follow up Appointment(s)/Referral(s): Enid Comer, [NON-STAFF] - 1 Week Rogelio Link DO [Doctor of Osteopathic Medicine] - 08/14/18 1:30 pm Activity/Diet/Wound Care/Special Instructions: Weightbearing as tolerated with walker. Leave dressing intact. Dressing may be removed by nurse or by patient on 2018. May shower with dressing on. Please follow-up with [facility] in 2 weeks and call with any questions or concerns, . Discharge Disposition: TRANSFER TO SNF/ECF
[2018-08-01] MEDS: MELOXICAM 7.5 MG TAB PO SCH (09:37)
[2018-08-01] MEDS: ASPIRIN 325 MG TAB PO SCH ×2 (09:38→21:52)
[2018-08-01 10:38] LABS: Basophils % (A) 0 %; Eosinophils # (A) 0.1 k/uL (0-0.7); Eosinophils % (A) 2 %; HCT 34.8 % (34.0-46.0); HGB 10.7 gm/dL (11.4-16.0); Lymphocytes % (A) 15 %; MCH 29.9 pg (25.0-35.0); MCHC 30.8 g/dL (31.0-37.0); MCV 97.2 fL (80.0-100.0); Mean Platelet Volume 8.9; Monocytes # (A) 0.5 k/uL (0-1.0); Monocytes % (A) 8 %; Neutrophils # (A) 5.1 k/uL (1.3-7.7); Neutrophils % (A) 75 %; Platelet Count 167 k/uL (150-450); RBC 3.58 m/uL (3.80-5.40); RDW 13.4 % (11.5-15.5); WBC 6.8 k/uL (3.8-10.6)
[2018-08-01] MEDS: SENNOSIDES-DOCUSATE SODIUM 1 EACH TAB PO SCH (21:52)
[2018-08-01] MEDS: TEMAZEPAM 15 MG CAP PO SCH (21:52)
[2018-08-02] MEDS: HYDROcodone/APAP 5-325MG 1 EACH TAB PO PRN ×2 (04:31→12:10)
[2018-08-02] MEDS: SODIUM CHLORIDE 0.9% 1,000 ML IV SCH (06:04)
[2018-08-02 07:35] VITALS: BP 117/61; PULSE 71; RESP 16; TEMP 98.4
[2018-08-02] MEDS: ASPIRIN 325 MG TAB PO SCH (07:49)
[2018-08-02] MEDS: MELOXICAM 7.5 MG TAB PO SCH (07:49)
== END 2018-08-02 15:36 | DRG 470 ==
LOC: 2ORMAIN 07:15 → 4SSUR 11:29
PROVIDERS: ADMIT Orthopaedic Surgery; ATTEND Orthopaedic Surgery
PROC: 0SR906A Replacement of Right Hip Joint with Oxidized Zirconium on Polyethylene Synthetic Substitute, Uncemented, Open Approach (ICD-10-PCS; principal; 2018-07-29 09:00)
DX: M16.11 Unilateral primary osteoarthritis, right hip (principal); J44.9 Chronic obstructive pulmonary disease, unspecified; I83.90 Asymptomatic varicose veins of unspecified lower extremity; J31.0 Chronic rhinitis; Z79.82 Long term (current) use of aspirin; Z79.899 Other long term (current) drug therapy; Z79.1 Long term (current) use of non-steroidal anti-inflammatories (NSAID); Z90.11 Acquired absence of right breast and nipple; Z96.651 Presence of right artificial knee joint; Z85.3 Personal history of malignant neoplasm of breast; Z85.828 Personal history of other malignant neoplasm of skin; Z87.891 Personal history of nicotine dependence; Z88.8 Allergy status to other drugs, medicaments and biological substances; Z80.3 Family history of malignant neoplasm of breast
CPT/HCPCS: 73501; 85025; 86850; 86891; 86900; 86901; 88305; 88311

== ENCOUNTER → 2019-01-10 | Outpatient (CLI) | payer MEDICARE ==
--- NOTE | 2019-01-13 08:08 | MM ---
Reason for exam: additional evaluation requested from prior study. Last mammogram was performed 10 months ago. History: Patient is postmenopausal, has history of breast cancer at age 55, and history of other cancer. Family history of breast cancer in maternal grandmother and breast cancer in mother at age 60. Implant in the right breast, December 2006. Reduction of the left breast, December 2006. Mastectomy of the right breast, October 23, 2006. Malignant right mammotome panel of the right breast, July 20, 2006. Took estrogen for 13 years 7 months beginning at age 42. Took progesterone for 13 years 7 months beginning at age 42. Took tamoxifen for 5 years beginning at age 55. Physical Findings: Nurse Summary: 1cm nodule in the left breast at 12 o'clock and 2 o'clock (nurse dw). MG 3D Diag Mammo W/Cad LT CC and MLO view(s) were taken of the left breast. Prior study comparison: March 26, 2018, left breast MG 3d diag mammo w/cad LT. March 23, 2017, left breast MG 3d diag mammo w/cad LT. There are scattered fibroglandular densities. No significant new findings when compared with previous films. These results were verbally communicated with the patient and result sheet given to the patient on 01/10/19. ASSESSMENT: Benign, BI-RAD 2 RECOMMENDATION: Routine screening mammogram of the left breast in 1 year. Manage patient on a clinical basis.
== END | disposition home or self-care (01) ==
LOC: RADMAMWWP 13:20
PROVIDERS: ATTEND Internal Medicine Hematology & Oncology
DX: Z08 Encounter for follow-up examination after completed treatment for malignant neoplasm (principal); Z85.3 Personal history of malignant neoplasm of breast
CPT/HCPCS: 77065; G0279; 77061

== ENCOUNTER → 2019-11-12 | Outpatient (CLI) | payer MEDICARE ==
[2019-11-12 10:28] LABS: HCT 44.7 % (34.0-46.0); MCH 30.5 pg (25.0-35.0); MCHC 31.4 g/dL (31.0-37.0); MCV 97.2 fL (80.0-100.0); Mean Platelet Volume 10.3; Platelet Count 205 k/uL (150-450); RDW 12.8 % (11.5-15.5); WBC 5.9 k/uL (3.8-10.6)
[2019-11-12 10:35] LABS: INR 0.9 (<1.2); Partial Thromboplastin Time 23.7 sec (22.0-30.0); Prothrombin Time 9.4 sec (9.0-12.0)
[2019-11-12 10:45] LABS: Appearance,Urine Clear (Clear); Bilirubin,Urine Negative (Negative); Blood,Urine Negative (Negative); Color,Urine Light Yellow; Glucose,Urine (UA) Negative (Negative); Ketones,Urine Negative (Negative); Leukocyte Esterase,Urine Negative (Negative); Nitrite,Urine Negative (Negative); Protein,Urine Negative (Negative); Specific Gravity,Urine 1.007 (1.001-1.035); Urobilinogen,Urine <2.0 mg/dL (<2.0)
[2019-11-12 10:56] LABS: Albumin 4.2 g/dL (3.5-5.0); Calcium 9.5 mg/dL (8.4-10.2); Potassium 4.1 mmol/L (3.5-5.1); Total Bilirubin 0.4 mg/dL (0.2-1.3); Total Protein 7.1 g/dL (6.3-8.2)
== END | disposition home or self-care (01) ==
LOC: LABWHC1 09:50
PROVIDERS: ATTEND Orthopaedic Surgery
DX: Z01.818 Encounter for other preprocedural examination (principal); Z01.812 Encounter for preprocedural laboratory examination; Z11.59 Encounter for screening for other viral diseases
CPT/HCPCS: 36415; 80053; 81003; 85027; 85610; 85730; 86850; 86900; 86901; 87070; 87635

== ENCOUNTER 2019-11-15 06:41 | Day surgery (SDC) | payer MEDICARE ==
[2019-11-11 15:32] VITALS: BMI 32.8
[~2019-11-15 06:41] MED LIST changes: -DEXAMETHASONE SOD PHOSPHATE 10 MG/ML 1 ML VIAL IV ONE; +GABAPENTIN 300 MG CAP PO ONE; -HYDROmorphone 0.5 MG/0.5 ML SYRINGE IVP PRN; -MIDAZOLAM (PF) 2 MG/2 ML VIAL IV PRN; -ONDANSETRON 4 MG/2 ML VIAL IVP ONE; -ROPIVACAINE 246.25 MG, EPINEPHrine 0.5 MG, KETOROLAC 30 MG, cloNIDine HCL/PF 80 MCG, WA... MISCELLANE ONE; +TRANEXAMIC ACID 1,000 MG in SODIUM CHLORIDE 0.9% 100 ML IVPB ONE; -TRANEXAMIC ACID 1,000 MG in SODIUM CHLORIDE 0.9% 50 ML IVPB ONE; -ceFAZolin IN SWFI 2 GM/20 ML SYRINGE IVP ONE
[2019-11-15] MEDS ORDERED: LACTATED RINGERS 1,000 ML IV ONE ×2 (07:15→08:16)
[2019-11-15] MEDS ORDERED: DEXAMETHASONE SOD PHOS (MDV) 100 MG/10 ML VIAL IVP ONE (07:16)
[2019-11-15] MEDS ORDERED: ONDANSETRON 4 MG/2 ML VIAL IVP ONE (07:16)
[2019-11-15] MEDS ORDERED: MIDAZOLAM 2 MG/2 ML VIAL ONE (07:21)
[2019-11-15] MEDS ORDERED: SODIUM CHLORIDE 0.9% IRRIG 1,000 ML BTL IRRIGATION ONE (07:21)
[2019-11-15] MEDS ORDERED: fentaNYL (PF) 50 MCG/ML 2 ML AMP ONE (07:21)
[2019-11-15] MEDS ORDERED: SODIUM CHLORIDE 0.9% 100 ML BAG ONE (07:21)
[2019-11-15] MEDS ORDERED: HEPARIN SODIUM,PORCINE 10,000 UNIT/ML 1 ML VIAL ONE (07:21)
[2019-11-15] MEDS ORDERED: TRANEXAMIC ACID 1,000 MG/10 ML VIAL ONE (07:21)
[2019-11-15] MEDS ORDERED: ceFAZolin 3,000 MG in SODIUM CHLORIDE 0.9% IRRIGATIO 3,000 ML IRRIGATION ONE (07:52)
[2019-11-15] MEDS: ROPIVACAINE 246.25 MG, EPINEPHrine 0.5 MG, KETOROLAC 30 MG, cloNIDine HCL/PF 80 MCG, WA... MISCELLANE ONE ×10 (07:58→08:31)
--- NOTE | 2019-11-15 09:01 | P.OP ---
Date of Procedure: 11/15/19 Preoperative Diagnosis: Severe osteoarthritis left hip Postoperative Diagnosis: Severe osteoarthritis left hip Procedure(s) Performed: Left total hip arthroplasty with a direct anterior approach Implants: Ram and nephew Polarstem size 4 standard Ram & Nephew R3, 3 hole acetabular shell, 52 mm Ram & Nephew reflection 6.5 mm cancellus screw, 20 mm 2 Ram [employer] Nephew R3, XLPE 20 acetabular liner Ram & Nephew Oxinium femoral head 36 m, +0 All components were press-fit. The articulation is Oxinium on polyethylene. Anesthesia: spinal Surgeon: Rogelio Link Treasury Associate #1: Chin Yang Estimated Blood Loss (ml): 100 Pathology: other (Femoral head) Condition: stable Disposition: PACU Indications for Procedure: After failure of conservative treatment we discussed the surgical and nonsurgical treatment options at length. Patient wishes to proceed with a total hip arthroplasty with a direct anterior approach. Complications specific to this procedure were discussed at length, including but not limited to infection, leg length discrepancy, dislocation, and nerve injury. Covid-19 was also discussed at length with the patient, and they are aware of the current policies and procedures. The patient was given the option of delaying surgery, but they elect to proceed knowing these risks. Patient is aware of all these complications and informed consent was obtained Operative Findings: The operative findings are consistent with severe osteoarthritis of the left hip Description of Procedure: Patient was seen and evaluated in the preoperative area, consent was reviewed, and the surgical site was marked with a skin marker. Patient was then brought to the operating room and given prophylactic antibiotics intravenously. 1 g of Tranexamic acid was also given. A spinal anesthetic was administered by the anesthesia department. The patient was then placed on the [place] table with the bony prominences well-padded. The hip area was then prepped and draped in usual sterile fashion. A universal timeout was then performed, which confirmed the patient's name, surgical site, ALLERGIES, and procedure being performed. Next the incision site was located at 1 cm distal and 1 cm lateral to the anterior superior iliac spine. The skin and subcutaneous tissues were sharply incised. Incision was carefully dissected down to the fascia overlying the tensor fascia kervin muscle. This fascia was then incised in line with the incision. Next, using blunt finger dissection, the tensor fascia kervin muscle was dissected off its investing fascia. The muscle was then carefully retracted laterally with a cobra retractor over the lateral neck of the femur. Next, the circumflex vessels were identified and cauterized using the AquaMantis device. The anterior hip capsule was then exposed. The capsule was then opened and an inverted T fashion. Cobra retractors were then placed intracapsularly. The proximal femur was then visualized. The femoral neck was then osteotomized appropriate level above the lesser trochanter. Small amount of traction was placed with the [place] table. A small wedge of bone was then removed from the remaining femoral head. Next, using a corkscrew femoral head was easily removed from the acetabulum. On gross visual inspection, the femoral head had complete loss of articular cartilage in multiple periarticular osteophytes. Attention was then turned to the acetabulum. the acetabulum was exposed and any remaining labrum was excised. Sequential reaming of the acetabulum was performed using fluoroscopic guidance. When the appropriate size was reached, a trial was then placed. The position and fit of the trial was checked with fluoroscopy. The trial was then removed. Then, using fluoroscopic guidance, the final implant was impacted at 20 of anteversion and 40 of abduction, and fully seated in the acetabulum. 2 screws were then placed in the acetabulum. Again fluoroscopy was used to check posi tion of the screws. Next, the liner was then impacted, with a 20 elevated liner located in the anterior superior quadrant. Component locking was confirmed. Attention was then directed to the femur. With the aid of the [place] table, the femur was externally rotated to approximately 130, extended, and abducted under the opposite leg. A side hook was then placed under the proximal femur, and the side hook elevator was used to elevate the proximal femur. Retractors were then placed. A capsular release was performed, as well as a release of the conjoined tendon, which afforded excellent visualization of the proximal femur. Next, a box osteotome was used to lateralize the proximal femur. A merchandise handler was then used to locate the femoral canal. Sequential broaching was then performed with appropriate size which afforded excellent fixation in the proximal femur. A trial was then placed with appropriate head and neck, and the hip was gently reduced with the aid of the [place] table. Fluoroscopy was then used to check position of the components, as well as to ensure equal leg lengths. The hip was then gently dislocated and the trials were then removed. Final implants were then impacted and the hip was again reduced. Final fluoroscopic x-rays confirmed that the components were in anatomic position, as well as equal leg lengths. The hip was also taken through range of motion, and found to be stable. The hip was then copiously irrigated with antibiotic solution with pulsatile lavage. The hip was then irrigated with Irrisept solution. The soft tissues were then injected with a ropivacaine solution, which consisted of 246.25 mg of ropivacaine, 0.5 mg of epinephrine, 30 mg of Toradol, 80 g of clonidine, and 48.45 mL of sterile water, for a total of 100 mL of fluid injected. A second dose of 1 g of Tranexamic acid was also given. the fascia was then closed with 2-0 strata fix suture. The subcutaneous tissue was closed with 3-0 Vicryl. The subcuticular tissue was closed with 3-0 strata fix suture. The skin was then closed with Dermabond glue and a sterile silver dressing. The patient was then transferred to the recovery room in stable condition. The cancer genetics assistant DEWAYNE Montana was required due to the complexity of surgery, and the need for skilled surgical assistant certified for positioning, draping, exposure, retraction, and closure of the wound.
[2019-11-15] MEDS ORDERED: DIAZEPAM 5 MG TAB PO PRN (09:08)
[2019-11-15] MEDS ORDERED: ACETAMINOPHEN TAB 325 MG TAB PO PRN (09:08)
[2019-11-15] MEDS ORDERED: NALOXONE 0.4 MG/ML 1 ML VIAL IV PRN (09:08)
[2019-11-15] MEDS ORDERED: MAGNESIUM HYDROXIDE 2,400 MG/10 ML CUP PO PRN (09:08)
[2019-11-15] MEDS ORDERED: TEMAZEPAM 15 MG CAP PO PRN (09:08)
[2019-11-15] MEDS ORDERED: HYDROcodone/APAP 5-325MG 1 EACH TAB PO PRN (09:08)
[2019-11-15] MEDS ORDERED: HYDROmorphone 0.5 MG/0.5 ML SYRINGE IVP PRN ×2 (09:08)
[2019-11-15] MEDS ORDERED: traMADol 50 MG TAB PO PRN (09:08)
[2019-11-15] MEDS ORDERED: ONDANSETRON 4 MG/2 ML VIAL IVP PRN (09:08)
--- NOTE | 2019-11-15 10:28 | XR ---
Left hip Limited HISTORY: Postop Single frontal view of the left hip submitted. Correlation to left hip 07/29/2018 Patient is status post left hip arthroplasty. There is anatomic alignment. Lucency in the soft tissue s is consistent with postop state. No fracture or dislocation. IMPRESSION: Orthopedic follow-up.
--- NOTE | 2019-11-15 10:31 | FL ---
Fluoroscopy HISTORY: Anterior hip replacement 48 seconds fluoroscopy time supplied to the referring clinician. 2 intraoperative C-arm images docum ent the procedure. See dictated report from orthopedic surgery.
--- NOTE | 2019-11-15 10:31 | XR ---
Limited left hip HISTORY: Left hip arthroplasty 2 views of the left hip document procedure from intraoperative exam
[2019-11-15] MEDS: LACTATED RINGERS 1,000 ML IV SCH ×2 (10:40→22:42)
[2019-11-15] MEDS: HYDROcodone/APAP 5-325MG 1 EACH TAB PO PRN (11:16)
--- NOTE | 2019-11-15 12:16 | P.CNPUL ---
History of Present Illness Consult date: 11/15/19 Reason for consult: other (Medical management) Chief complaint: Left hip pain History of present illness: This is a very pleasant 69-year-old female patient who follows with Dr. Eller as her primary care provider. She has a history of gastroesophageal reflux disease, breast cancer, basal cell carcinoma of the skin, seasonal ALLERGIC rhinitis, GERD. She also has a history of osteoarthritis and has been having ongoing pain in her left hip. She presented here today for an elective left hip arthroplasty that was performed by Dr. perera. She is seen in consultation on the regular medical floor. She is currently awake and alert in no acute distress. No shortness of breath, cough or congestion. No chest discomfort. Her pain is currently well controlled. Dressing to the left hip clean and dry. She is maintaining good O2 saturations in the high 90s on room air. She's been afebrile. Hemodynamically stable. She will be receiving 2 doses of IV Kefzol. Review of Systems REVIEW OF SYSTEMS: CONSTITUTIONAL: Denies any recent significant weight loss or weight gain. EYES: Denies change in vision. EARS, NOSE, MOUTH, THROAT: Denies headaches, denies sore throat. CARDIOVASCULAR: Denies chest pain, palpitations or syncopal episodes. RESPIRATORY: Denies shortness of breath, cough, congestion or hemoptysis. GASTROINTESTINAL: Denies change in appetite, denies abdominal pain GENITOURINARY: Denies hematuria, denies infections. MUSKULOSKELETAL: Left hip pain, denies swelling. INTEGUMENTARY: Denies rash, denies eczema. NEUROLOGICAL: Denies recent memory loss, no recent seizure activity. PSYCHIATRIC: Denies anxiety, denies depression. HEMATOLOGIC/LYMPHATIC: Denies anemia, denies enlarged lymph nodes. Past Medical History Past Medical History: Cancer, Osteoarthritis (OA) Additional Past Medical History / Comment(s): HX BREAST AND SKIN CANCER History of Any Multi-Drug Resistant Organisms: None Reported Past Surgical History: Breast Surgery, Joint Replacement, Orthopedic Surgery Additional Past Surgical History / Comment(s): COLONOSCOPY, right hip replaced 2018. BILAT CTR. REMOVAL BASAL CELL CARCINOMA LT ARM. RT MASTECTOMY 2006,. RT BUNIONECTOMY, right knee replaced 01/08/18 Past Anesthesia/Blood Transfusion Reactions: No Reported Reaction Additional Past Anesthesia/Blood Transfusion Reaction / Comment(s): STATES ONLY TAKE A LITTLE ANESTHESIA TO BE EFFECTIVE Past Psychological History: No Psychological Hx Reported Smoking Status: Former smoker Past Alcohol Use History: None Reported Additional Past Alcohol Use History / Comment(s): QUIT SMOKING AGE 29 Past Drug Use History: None Reported - Past Family History Mother Family Medical History: Cancer Additional Family Medical History / Comment(s): breast CA Medications and Allergies Home Medications Medication Instructions Recorded Confirmed Type Calcium Citrate/Vitamin D3 1 tab PO HS 01/03/18 11/15/19 History [Calcitrate + Vit D Caplet] Flaxseed Oil [[place]-3 Flaxseed Oil] 1,000 mg PO DAILY 01/03/18 11/15/19 History Montelukast [Singulair] 10 mg PO HS 01/03/18 11/15/19 History Aspirin 81 mg PO DAILY 07/24/18 11/15/19 History Excedrin Pm 1 tab PO HS PRN 11/11/19 11/15/19 History Allergies Allergy/AdvReac Type Severity Reaction Status Date / Time venlafaxine [From Effexor] AdvReac LIGHTHEADED Verified 11/15/19 07:03 AND DIZZY Physical Exam Vitals: Vital Signs Temp Pulse Resp BP BP Pulse Ox 11/15/19 09:52 60 16 102/59 99 11/15/19 09:31 58 L 16 103/55 98 11/15/19 09:15 58 L 18 98/55 98 11/15/19 09:05 97 F L 71 18 93/54 97 11/15/19 07:05 97.0 F L 77 16 128/61 98 Intake and Output 11/14/19 11/15/19 11/15/19 22:59 06:59 14:59 Intake Total 1651 Output Total 100 Balance 1551 Intake: IV 1651 Output: Estimated Blood Loss 100 Other: Weight 105.1 kg GENERAL EXAM: Alert, pleasant 69-year-old female patient, on room air, comfortable in no apparent distress. HEAD: Normocephalic. EYES: Normal reaction of pupils, equal size. NOSE: Clear with pink turbinates. THROAT: No erythema or exudates. NECK: No masses, no JVD. CHEST: No chest wall deformity. LUNGS: Equal air entry with no crackles, wheeze, rhonchi or dullness. CVS: S1 and S2 normal with no audible murmur, regular rhythm. ABDOMEN: No hepatosplenomegaly, normal bowel sounds, no guarding or rigidity. SPINE: No scoliosis or deformity SKIN: No rashes CENTRAL NERVOUS SYSTEM: No focal deficits, tone is normal in all 4 extremities. EXTREMITIES: Dressing to the left hip dry and intact. There is no peripheral edema. No clubbing, no cyanosis. Peripheral pulses are intact. Assessment and Plan Assessment: 1 Osteoarthritis and pain of the left hip, status post left hip arthroplasty. Postoperative day #0 2 History of gastroesophageal reflux disease without esophagitis 3 History of seasonal ALLERGIC rhinitis currently inactive and stable 4 History of breast cancer 5 History of basal cell carcinoma of the skin Plan: The patient was seen and evaluated by Dr. Eller Currently stable from the medical standpoint Cleared for discharge once cleared by orthopedics Follow-up in the office in 1-2 weeks' time I, the cosigning physician, performed a history & physical examination of the patient. Lungs sounds are clear. Maintaining good O2 saturations in the 90s on room air. I discussed the assessment and plan of care with my nurse practitioner, Shaye Ortega. I attest to the above consultation as dictated by her. Time with Patient: Greater than 30
[2019-11-15] MEDS: HYDROmorphone 0.5 MG/0.5 ML SYRINGE IVP PRN ×2 (15:49→22:07)
[2019-11-15] MEDS: ASPIRIN 325 MG TAB PO SCH (20:45)
[2019-11-15 20:48] VITALS: RESP 18
[2019-11-15] MEDS ORDERED: SENNOSIDES-DOCUSATE SODIUM 1 EACH TAB PO SCH (21:00)
[2019-11-16] MEDS: HYDROcodone/APAP 5-325MG 1 EACH TAB PO PRN ×2 (02:38→08:21)
[2019-11-16 05:09] VITALS: BP 110/60; PULSE 62; TEMP 98.2
[2019-11-16 06:46] LABS: Basophils % (A) 0 %; Eosinophils # (A) 0.1 k/uL (0-0.7); Eosinophils % (A) 1 %; HCT 34.5 % (34.0-46.0); HGB 11.1 gm/dL (11.4-16.0); Lymphocytes # (A) 1.8 k/uL (1.0-4.8); Lymphocytes % (A) 20 %; MCH 31.3 pg (25.0-35.0); MCHC 32.3 g/dL (31.0-37.0); MCV 96.9 fL (80.0-100.0); Mean Platelet Volume 10.3; Monocytes # (A) 0.4 k/uL (0-1.0); Monocytes % (A) 5 %; Neutrophils # (A) 6.4 k/uL (1.3-7.7); Neutrophils % (A) 73 %; Platelet Count 157 k/uL (150-450); RBC 3.56 m/uL (3.80-5.40); RDW 12.7 % (11.5-15.5); WBC 8.8 k/uL (3.8-10.6)
[2019-11-16] MEDS: ASPIRIN 325 MG TAB PO SCH (07:15)
--- NOTE | 2019-11-16 11:07 | P.DS ---
Providers Expected date of discharge: 11/16/19 Attending physician: Rogelio Link Consults: 11/15/19 09:08 Consult Physician Routine Consulting Provider: Gabriela Eller Consult Reason/Comments: post op med management Do you want consulting provider notified?: Yes Primary care physician: Gabriela Eller - Discharge Diagnosis(es) (1) Status post total hip replacement, left Patient was admitted to the OR on 11/15/2019 to undergo a left total hip arthroplasty. She had failed conservative measures as an outpatient and desired to proceed with elective surgery after given informed consent. She underwent the above procedure which she tolerated well without complication. Postoperative hospital course has remained without complication. On day of discharge she is afebrile, vital signs stable, labs within acceptable ranges, tolerating by mouth meds and diet, voiding without difficulty, positive flatus, denies abdominal pain or calf pain, pain is controlled on oral pain medication and has no new complaints. Wound is benign, neurovascular status is intact, calf is soft and nontender, abdomen soft and nontender. Review of systems is negative for numbness, tingling, fever, chills, chest pain, shortness of breath, nausea, vomiting, dizziness, headaches, slurred speech or other Current Visit: Yes Status: Acute Priority: Medium Procedures: Left SHAE Patient Condition at Discharge: Good Plan - Discharge Summary Discharge Rx Participant: No New Discharge Prescriptions: New Aspirin 325 mg PO BID #60 tab HYDROcodone/APAP 7.5-325MG [[place] 7.5-325] 1 - 2 each PO Q6HR PRN #56 tab PRN Reason: Pain No Action Montelukast [Singulair] 10 mg PO HS Flaxseed Oil [[place]oca-3 Flaxseed Oil] 1,000 mg PO DAILY Calcium Citrate/Vitamin D3 [Calcitrate + Vit D Caplet] 1 tab PO HS Aspirin 81 mg PO DAILY Excedrin Pm 1 tab PO HS PRN PRN Reason: sleep Discharge Medication List Calcium Citrate/Vitamin D3 [Calcitrate + Vit D Caplet] 1 tab PO HS 01/03/18 [History] Flaxseed Oil [[place]-3 Flaxseed Oil] 1,000 mg PO DAILY 01/03/18 [History] Montelukast [Singulair] 10 mg PO HS 01/03/18 [History] Aspirin 81 mg PO DAILY 07/24/18 [History] Excedrin Pm 1 tab PO HS PRN 11/11/19 [History] Aspirin 325 mg PO BID #60 tab 11/15/19 [Rx] HYDROcodone/APAP 7.5-325MG [[place] 7.5-325] 1 - 2 each PO Q6HR PRN #56 tab 11/15/19 [Rx] Follow up Appointment(s)/Referral(s): [facility], [NON-STAFF] - As Needed Rogelio Link DO [Doctor of Osteopathic Medicine] - 10 Days Patient Instructions/Handouts: Anterior Hip Replacement (DC) Activity/Diet/Wound Care/Special Instructions: Keep wound clean and dry Take meds as directed Follow-up with Dr. Link in office Weight bear as tolerated May shower in 3 days if no bleeding Discharge Disposition: HOME WITH HOME HEALTH SERVICES
[2019-11-16] MEDS ORDERED: MULTIVITAMINS, THERA 1 EACH TAB PO SCH (12:00)
== END 2019-11-16 12:13 | disposition home health service (06) ==
LOC: OR 06:41 → 5NMEDONC 09:05 → OR 11-16 12:13
PROVIDERS: ATTEND Orthopaedic Surgery
DX: M16.12 Unilateral primary osteoarthritis, left hip (principal); M25.752 Osteophyte, left hip; K21.9 Gastro-esophageal reflux disease without esophagitis; Z85.3 Personal history of malignant neoplasm of breast; Z85.828 Personal history of other malignant neoplasm of skin; Z97.3 Presence of spectacles and contact lenses; Z96.641 Presence of right artificial hip joint; Z90.11 Acquired absence of right breast and nipple; Z98.890 Other specified postprocedural states; Z96.651 Presence of right artificial knee joint; Z80.3 Family history of malignant neoplasm of breast; Z87.891 Personal history of nicotine dependence; Z83.3 Family history of diabetes mellitus; Z79.1 Long term (current) use of non-steroidal anti-inflammatories (NSAID); Z79.82 Long term (current) use of aspirin; Z79.891 Long term (current) use of opiate analgesic; Z79.899 Other long term (current) drug therapy; Z88.8 Allergy status to other drugs, medicaments and biological substances; Z91.048 Other nonmedicinal substance allergy status
CPT/HCPCS: 97110; 97161; 86900; 86901; 85025; 86850; 73501; 27130; J0171; J0690 ×2; J2405; J1885; J1100; J2795; J0735; J1170; 86891

== ENCOUNTER 2020-01-29 15:15 | Inpatient (IN) | payer MEDICARE ==
[2020-01-29] MEDS ORDERED: ACETAMINOPHEN TAB 500 MG TAB PO STA (15:29)
[2020-01-29] MEDS ORDERED: SODIUM CHLORIDE 0.9% 1,000 ML IV ONE (15:30)
--- NOTE | 2020-01-29 15:34 | ED ---
General Adult HPI - General Chief complaint: Urogenital Stated complaint: cough, fever, uti Time Seen by Provider: 01/29/20 15:23 Source: patient, RN notes reviewed, old records reviewed Mode of arrival: ambulatory Limitations: no limitations - History of Present Illness Initial comments: 71-year-old female presenting for evaluation of fever and chills, dysuria and urinary frequency. Patient states over the past 3 days she is had shaking chills and fever. She's had urinary frequency, urinating approximately once every hour. She denies abdominal pain, denies vomiting. Denies chest pain or cough. She's had a mild sore throat. No chest pain or dyspnea. No rash. - Related Data Home Medications Medication Instructions Recorded Confirmed Calcium Citrate/Vitamin D3 1 tab PO HS 01/03/18 11/15/19 [Calcitrate + Vit D Caplet] Flaxseed Oil [[place]-3 Flaxseed Oil] 1,000 mg PO DAILY 01/03/18 11/15/19 Montelukast [Singulair] 10 mg PO HS 01/03/18 11/15/19 Aspirin 81 mg PO DAILY 07/24/18 11/15/19 Excedrin Pm 1 tab PO HS PRN 11/11/19 11/15/19 Previous Rx's Medication Instructions Recorded Aspirin 325 mg PO BID #60 tab 11/15/19 HYDROcodone/APAP 7.5-325MG [[place] 1 - 2 each PO Q6HR PRN #56 tab 11/15/19 7.5-325] Allergies Allergy/AdvReac Type Severity Reaction Status Date / Time venlafaxine [From Effexor] AdvReac LIGHTHEADED Verified 11/15/19 07:03 AND DIZZY Review of Systems ROS Statement: Those systems with pertinent positive or pertinent negative responses have been documented in the HPI. ROS Other: All systems not noted in ROS Statement are negative. Past Medical History Past Medical History: Cancer, Osteoarthritis (OA) Additional Past Medical History / Comment(s): HX BREAST AND SKIN CANCER History of Any Multi-Drug Resistant Organisms: None Reported Past Surgical History: Breast Surgery, Orthopedic Surgery Additional Past Surgical History / Comment(s): COLONOSCOPY. BILAT CTR. REMOVAL BASAL CELL CARCINOMA LT ARM. RT MASTECTOMY. RT BUNIONECTOMY, TRK 01/08/18 Past Anesthesia/Blood Transfusion Reactions: No Reported Reaction Additional Past Anesthesia/Blood Transfusion Reaction / Comment(s): STATES ONLY TAKE A LITTLE ANESTHESIA TO BE EFFECTIVE Past Psychological History: No Psychological Hx Reported Smoking Status: Former smoker Past Alcohol Use History: None Reported Past Drug Use History: None Reported - Past Family History Mother Family Medical History: Cancer Additional Family Medical History / Comment(s): breast CA General Exam Limitations: no limitations General appearance: alert, in no apparent distress Head exam: Present: atraumatic, normocephalic Eye exam: Present: normal appearance, PERRL ENT exam: Present: normal exam Neck exam: Present: normal inspection. Absent: tenderness, meningismus Respiratory exam: Present: normal lung sounds bilaterally. Absent: respiratory distress, wheezes Cardiovascular Exam: Present: normal rhythm, tachycardia GI/Abdominal exam: Present: soft. Absent: distended, tenderness, guarding, rebound Extremities exam: Present: normal inspection, normal capillary refill. Absent: pedal edema Back exam: Absent: CVA tenderness (R), CVA tenderness (L) Neurological exam: Present: alert, oriented X3, CN II-XII intact. Absent: motor sensory deficit Psychiatric exam: Present: normal affect, normal mood Skin exam: Present: warm, dry, intact. Absent: cyanosis, diaphoretic Course Vital Signs 01/29/20 15:17 Temperature 101.3 F H Pulse Rate 112 H Respiratory 22 Rate Blood Pressure 118/71 O2 Sat by Pulse 96 Oximetry Medical Decision Making - Medical Decision Making 69-year-old female presenting with fever, chills, dysuria and urinary frequency. Patient has normal lactic acid, normal CBC, urinalysis consistent with cystitis, likely pyelonephritis. Case discussed with Dr. Beard who will admit. - Lab Data Result diagrams: 01/29/20 15:47 01/29/20 15:47 Lab Results 01/29/20 01/29/20 01/29/20 Range/Units 15:47 15:47 15:47 WBC 6.5 (3.8-10.6) k/uL RBC 4.18 (3.80-5.40) m/uL Hgb 12.6 (11.4-16.0) gm/dL Hct 39.6 (34.0-46.0) % MCV 94.8 (80.0-100.0) fL MCH 30.2 (25.0-35.0) pg MCHC 31.8 (31.0-37.0) g/dL RDW 13.5 (11.5-15.5) % Plt Count 176 (150-450) k/uL Neutrophils % 75 % Lymphocytes % 15 % Monocytes % 6 % Eosinophils % 1 % Basophils % 0 % Neutrophils # 4.9 (1.3-7.7) k/uL Lymphocytes # 1.0 (1.0-4.8) k/uL Monocytes # 0.4 (0-1.0) k/uL Eosinophils # 0.1 (0-0.7) k/uL Basophils # 0.0 (0-0.2) k/uL PT 9.8 (9.0-12.0) sec INR 0.9 (<1.2) APTT 23.8 (22.0-30.0) sec Sodium (137-145) mmol/L Potassium (3.5-5.1) mmol/L Chloride (98-107) mmol/L Carbon Dioxide (22-30) mmol/L Anion Gap mmol/L BUN (7-17) mg/dL Creatinine (0.52-1.04) mg/dL Est GFR (CKD-EPI)AfAm (>60 ml/min/1.73 sqM) Est GFR (CKD-EPI)NonAf (>60 ml/min/1.73 sqM) Glucose (74-99) mg/dL Plasma Lactic Acid Jaime (0.7-2.0) mmol/L Calcium (8.4-10.2) mg/dL Total Bilirubin (0.2-1.3) mg/dL AST (14-36) U/L ALT (4-34) U/L Alkaline Phosphatase (38-126) U/L Total Protein (6.3-8.2) g/dL Albumin (3.5-5.0) g/dL Urine Color Yellow Urine Appearance Turbid H (Clear) Urine pH 6.0 (5.0-8.0) Ur Specific [place] 1.019 (1.001-1.035) Urine Protein 3+ H (Negative) Urine Glucose (UA) Negative (Negative) Urine Ketones Negative (Negative) Urine Blood Large H (Negative) Urine Nitrite Negative (Negative) Urine Bilirubin Negative (Negative) Urine Urobilinogen 2.0 (<2.0) mg/dL Ur Leukocyte Esterase Large H (Negative) Urine RBC 123 H (0-5) /hpf Urine WBC >182 H (0-5) /hpf Urine WBC Clumps Many H (None) /hpf Ur Squamous Epith Cells 2 (0-4) /hpf Urine Bacteria Many H (None) /hpf Urine Mucus Few H (None) /hpf 01/29/20 01/29/20 Range/Units 15:47 15:47 WBC (3.8-10.6) k/uL RBC (3.80-5.40) m/uL Hgb (11.4-16.0) gm/dL Hct (34.0-46.0) % MCV (80.0-100.0) fL MCH (25.0-35.0) pg MCHC (31.0-37.0) g/dL RDW (11.5-15.5) % Plt Count (150-450) k/uL Neutrophils % % Lymphocytes % % Monocytes % % Eosinophils % % Basophils % % Neutrophils # (1.3-7.7) k/uL Lymphocytes # (1.0-4.8) k/uL Monocytes # (0-1.0) k/uL Eosinophils # (0-0.7) k/uL Basophils # (0-0.2) k/uL PT (9.0-12.0) sec INR (<1.2) APTT (22.0-30.0) sec Sodium 138 (137-145) mmol/L Potassium 3.6 (3.5-5.1) mmol/L Chloride 103 (98-107) mmol/L Carbon Dioxide 27 (22-30) mmol/L Anion Gap 8 mmol/L BUN 17 (7-17) mg/dL Creatinine 1.06 H (0.52-1.04) mg/dL Est GFR (CKD-EPI)AfAm 62 (>60 ml/min/1.73 sqM) Est GFR (CKD-EPI)NonAf 54 (>60 ml/min/1.73 sqM) Glucose 113 H (74-99) mg/dL Plasma Lactic Acid Jaime 1.0 (0.7-2.0) mmol/L Calcium 8.9 (8.4-10.2) mg/dL Total Bilirubin 0.8 (0.2-1.3) mg/dL AST 83 H (14-36) U/L ALT 68 H (4-34) U/L Alkaline Phosphatase 141 H (38-126) U/L Total Protein 6.4 (6.3-8.2) g/dL Albumin 3.8 (3.5-5.0) g/dL Urine Color Urine Appearance (Clear) Urine pH (5.0-8.0) Ur Specific [place] (1.001-1.035) Urine Protein (Negative) Urine Glucose (UA) (Negative) Urine Ketones (Negative) Urine Blood (Negative) Urine Nitrite (Negative) Urine Bilirubin (Negative) Urine Urobilinogen (<2.0) mg/dL Ur Leukocyte Esterase (Negative) Urine RBC (0-5) /hpf Urine WBC (0-5) /hpf Urine WBC Clumps (None) /hpf Ur Squamous Epith Cells (0-4) /hpf Urine Bacteria (None) /hpf Urine Mucus (None) /hpf Disposition Clinical Impression: Urinary tract infection, Sepsis Disposition: ADMITTED IP TO THIS HOSP Condition: Stable Referrals: Gabriela Eller MD [Primary Care Provider] - 1-2 days
[2020-01-29 15:57] LABS: Basophils % (A) 0 %; Eosinophils # (A) 0.1 k/uL (0-0.7); Eosinophils % (A) 1 %; HCT 39.6 % (34.0-46.0); HGB 12.6 gm/dL (11.4-16.0); Lymphocytes % (A) 15 %; MCH 30.2 pg (25.0-35.0); MCHC 31.8 g/dL (31.0-37.0); MCV 94.8 fL (80.0-100.0); Monocytes # (A) 0.4 k/uL (0-1.0); Monocytes % (A) 6 %; Neutrophils # (A) 4.9 k/uL (1.3-7.7); Neutrophils % (A) 75 %; Platelet Count 176 k/uL (150-450); RBC 4.18 m/uL (3.80-5.40); RDW 13.5 % (11.5-15.5); WBC 6.5 k/uL (3.8-10.6)
[2020-01-29 16:10] LABS: Albumin 3.8 g/dL (3.5-5.0); Calcium 8.9 mg/dL (8.4-10.2); Potassium 3.6 mmol/L (3.5-5.1); Total Bilirubin 0.8 mg/dL (0.2-1.3); Total Protein 6.4 g/dL (6.3-8.2)
[2020-01-29] MEDS: SODIUM CHLORIDE 0.9% 1,000 ML IV SCH (16:10)
[2020-01-29 16:22] LABS: Appearance,Urine Turbid (Clear); Bacteria,Urine Many /hpf; Bilirubin,Urine Negative (Negative); Blood,Urine Large (Negative); Color,Urine Yellow; Glucose,Urine (UA) Negative (Negative); INR 0.9 (<1.2); Ketones,Urine Negative (Negative); Leukocyte Esterase,Urine Large (Negative); Mucus,Urine Few /hpf; Nitrite,Urine Negative (Negative); Partial Thromboplastin Time 23.8 sec (22.0-30.0); Protein,Urine 3+ (Negative); Prothrombin Time 9.8 sec (9.0-12.0); RBC,Urine 123 /hpf (0-5); Specific Gravity,Urine 1.019 (1.001-1.035); Squamous Epithelial Cell,Urine 2 /hpf (0-4); WBC,Urine >182 /hpf (0-5)
[2020-01-29] MEDS ORDERED: ACETAMINOPHEN TAB 325 MG TAB PO PRN (16:42)
[2020-01-29] MEDS ORDERED: NALOXONE 0.4 MG/ML 1 ML VIAL IV PRN (16:42)
[2020-01-29] MEDS ORDERED: ASPIRIN-ACET-CAFF 250-250-65MG 1 EACH TAB PO PRN (18:35)
[2020-01-29] MEDS ORDERED: ALPRAZolam 0.25 MG TAB PO PRN (19:14)
--- NOTE | 2020-01-29 19:44 | HP ---
HISTORY AND PHYSICAL CHIEF COMPLAINTS: Shaking chills, UTI and cough, fever. HISTORY OF PRESENT ILLNESS: This 69-year-old woman with a past medical history of multiple medical problems, including DJD, history of breast surgery, history of colonoscopy, orthopedic surgery, being followed by Dr. Eller in the outpatient setting, was not feeling well over the past several days. The patient had shaking chills and fever periodically and the patient also had dysuria and difficulty in micturition. The patient came to [facility] and was found to have a UTI and admitted for further evaluation and treatment. White count is normal. AST and ALT were elevated. There is no history of any headache, loss of consciousness, seizures. PAST MEDICAL HISTORY: History of DJD, history of breast cancer, history of basal cell carcinoma. MEDICATIONS: Medications prior to admission include Excedrin P.M., Singulair 10 mg at bedtime, Calcitrate and aspirin 81 mg at bedtime. ALLERGIES: EFFEXOR. FAMILY HISTORY: History of breast cancer in the family. SOCIAL HISTORY: Previous history of smoking. No current smoking or alcohol intake. REVIEW OF SYSTEMS: ENT: No diminished hearing. No diminished vision. CARDIOVASCULAR SYSTEM: As mentioned earlier. RESPIRATORY SYSTEM: As mentioned earlier. GI: As mentioned earlier. : As mentioned earlier. NERVOUS SYSTEM: No numbness, weakness. ALLERGY/IMMUNOLOGY: No asthma, hayfever. MUSCULOSKELETAL: As mentioned earlier. HEMATOLOGY/ONCOLOGY: No history of anemia. ENDOCRINE: No history of diabetes, hypothyroidism. CONSTITUTIONAL: As mentioned earlier. DERMATOLOGY: Negative. RHEUMATOLOGY: Negative. PSYCHIATRY: Negative. PHYSICAL EXAMINATION: Patient alert and oriented x3. Pulse 62, blood pressure 105/64, respiration 12. Temperature is 101.3, pulse ox 96% on room air. HEENT: Conjunctivae normal. Oral mucosa moist. NECK: No jugular venous distention. No carotid bruit. No lymph node enlargement. CARDIOVASCULAR SYSTEM: S1, S2 muffled. RESPIRATORY SYSTEM: Breath sounds diminished at the bases. A few scattered rhonchi. No crackles. ABDOMEN: Soft, non-tender. No mass palpable. LEGS: No edema. No swelling. NERVOUS SYSTEM: Higher functions as mentioned earlier. Moves all 4 limbs. No focal motor or sensory deficit. LYMPHATICS: No lymph node palpable in neck, axillae or groin. SKIN: No ulcer, rash, bleeding. JOINTS: No active deforming arthropathy. LABS: CBC within normal limits. INR 0.9. Otherwise, creatinine is 1.06 and glucose 113. AST is 83, ALT 68, alkaline phosphatase 141. ASSESSMENT: 1. Acute urinary tract infection with sepsis, present on admission. 2. Elevated AST and ALT, possibly hepatitis secondary to sepsis. 3. Increased random blood sugar. 4. Increased creatinine with mild acute renal failure. 5. History of degenerative joint disease. 6. History of breast and skin cancer. 7. History of colonoscopy. 8. History of basal cell carcinoma. 9. History of right mastectomy. 10.Remote history of nicotine dependence. 11.Obesity with body mass index of 32. RECOMMENDATION AND DISCUSSION: In this 69-year-old woman who presented with multiple complex medical issues, we will monitor the patient closely, continue the current medications, continue symptomatic treatment. Will initiate Rocephin. Urine cultures. Symptomatic treatment. Repeat labs. Guarded prognosis because of multiple complex medical issues. Further recommendations to follow. A copy of this dictation is being forwarded to Dr. Eller, who is the primary physician. MMODL / IJN: [id number] /
[2020-01-29] MEDS: HEPARIN SODIUM,PORCINE 5,000 UNIT/ML 1 ML VIAL SQ SCH (21:40)
[2020-01-29] MEDS: MONTELUKAST 10 MG TAB PO SCH (21:40)
[2020-01-29] MEDS: ASPIRIN 81 MG PO SCH (21:40)
[2020-01-29] MEDS: CALCIUM CARB-VIT D 500MG-200UN 1 EACH TAB PO SCH (21:40)
[2020-01-30] MEDS: SODIUM CHLORIDE 0.9% 1,000 ML IV SCH ×4 (06:11→23:23)
[2020-01-30 06:56] LABS: Basophils % (A) 0 %; Eosinophils % (A) 1 %; HCT 34.8 % (34.0-46.0); HGB 11.3 gm/dL (11.4-16.0); Lymphocytes # (A) 0.9 k/uL (1.0-4.8); Lymphocytes % (A) 20 %; MCH 31.2 pg (25.0-35.0); MCHC 32.5 g/dL (31.0-37.0); MCV 95.8 fL (80.0-100.0); Mean Platelet Volume 9.1; Monocytes # (A) 0.3 k/uL (0-1.0); Monocytes % (A) 7 %; Neutrophils # (A) 3.3 k/uL (1.3-7.7); Neutrophils % (A) 70 %; Platelet Count 148 k/uL (150-450); RBC 3.63 m/uL (3.80-5.40); RDW 13.5 % (11.5-15.5); WBC 4.7 k/uL (3.8-10.6)
[2020-01-30 07:21] LABS: Albumin 2.9 g/dL (3.5-5.0); Calcium 8.2 mg/dL (8.4-10.2); Potassium 3.6 mmol/L (3.5-5.1); Total Bilirubin 0.5 mg/dL (0.2-1.3); Total Protein 5.4 g/dL (6.3-8.2)
[2020-01-30] MEDS: PANTOPRAZOLE 40 MG TABLET PO SCH (08:16)
[2020-01-30] MEDS: HEPARIN SODIUM,PORCINE 5,000 UNIT/ML 1 ML VIAL SQ SCH ×2 (09:04→20:06)
--- NOTE | 2020-01-30 15:10 | XR ---
EXAMINATION TYPE: XR chest 1V portable DATE OF EXAM: 01/30/2020 CLINICAL HISTORY: Difficulty breathing and pneumonia. TECHNIQUE: Single AP portable upright view of the chest is obtained. COMPARISON: CTA chest November 29, 2015. Most recent x-ray October 2019. FINDINGS: Slight asymmetry to right breast shadow versus left-shadow corresponds to right-sided ayleen st implant. Some chronic parenchymal changes bilaterally without suspicious focal airspace opacity, p leural effusion, or pneumothorax seen. Cardiac silhouette size remains within normal limits. Patient slightly more rotated to the right on current study. Osseous structures are demineralized. IMPRESSION: Chronic changes without suspicious focal infiltrate
--- NOTE | 2020-01-30 15:44 | PN ---
PROGRESS NOTE DATE OF SERVICE: 01/30/2008 This is a 69-year-old woman who was admitted with acute UTI with sepsis, is on IV antibiotics. Cultures are pending at this time. Patient is feeling slightly better. No chest pain. No palpitations. No fever. PHYSICAL EXAMINATION: Alert and oriented x3. Pulse 84, blood pressure 130/69, respiration 16, temperature 98.1, pulse ox 94% on room air. HEENT: Conjunctivae normal. NECK: No jugular venous distension. CARDIOVASCULAR SYSTEM: S1, S2, muffled. RESPIRATION: Breath sounds diminished at the bases, no rhonchi, no crackles. ABDOMEN: Soft, nontender. No mass palpable. LEGS: No edema, no swelling. NERVOUS SYSTEM: Higher functions as mentioned earlier. Moves all 4 limbs, no motor or sensory deficits. LYMPHATICS: No lymph node enlargement of the neck or axillae. SKIN: No ulcer, no rash. LABS: At this time, WBC 4.3, hemoglobin 11.3, and AST is 80, ALT 68, albumin is 2.9. ASSESSMENT: 1. Acute urinary tract infection with sepsis, present on admission. 2. Elevated AST, ALT, possibly acute hepatitis secondary to sepsis. 3. Increased random blood sugar. 4. Increased creatinine with mild acute renal failure. 5. History of DJD. 6. History of breast and skin cancer. 7. History of colonoscopy. 8. History of basal cell carcinoma. 9. History of right mastectomy. 10.Remote history of nicotine dependence. 11.Obesity with body mass index of 32. RECOMMENDATION: Recommend to continue current medications, symptomatic treatment and at this time I would recommend continue with antibiotics, await cultures, prognosis guarded because of multiple complex medical conditions: Further recommendations to follow. MMODL / IJN: [id number] /
[2020-01-30] MEDS: CALCIUM CARB-VIT D 500MG-200UN 1 EACH TAB PO SCH (20:05)
[2020-01-30] MEDS: MONTELUKAST 10 MG TAB PO SCH (20:05)
[2020-01-30] MEDS: ASPIRIN 81 MG PO SCH (20:06)
[2020-01-31] MEDS: PANTOPRAZOLE 40 MG TABLET PO SCH (07:24)
[2020-01-31] MEDS: HEPARIN SODIUM,PORCINE 5,000 UNIT/ML 1 ML VIAL SQ SCH ×2 (07:25→20:10)
[2020-01-31] MEDS: SODIUM CHLORIDE 0.9% 1,000 ML IV SCH ×3 (07:31→20:28)
[2020-01-31 08:59] LABS: African American GFR (CKD) >90 (>60 ml/min/1.73 sqM); Anion Gap 5 mmol/L; Blood Urea Nitrogen 12 mg/dL (7-17); Calcium 8.8 mg/dL (8.4-10.2); Carbon Dioxide 24 mmol/L (22-30); Chloride 110 mmol/L (98-107); Glucose 123 mg/dL (74-99); Non-African American GFR(CKD) 80 (>60 ml/min/1.73 sqM); Potassium 3.9 mmol/L (3.5-5.1); Sodium 139 mmol/L (137-145)
[2020-01-31] MEDS: ASPIRIN 81 MG PO SCH (20:10)
[2020-01-31] MEDS: MONTELUKAST 10 MG TAB PO SCH (20:11)
[2020-01-31] MEDS: CALCIUM CARB-VIT D 500MG-200UN 1 EACH TAB PO SCH (20:11)
--- NOTE | 2020-02-01 00:10 | P.PN ---
Subjective Progress Note Date: 01/31/20 Principal diagnosis: Sepsis due to UTI Ms. Hoffman is a 69-year-old female with a past medical history of breast and skin cancer, osteoarthritis coming in with dysuria associated with fever and chills. She is currently being treated for UTI secondary to E. coli. Blood cultures have been negative so far. Today the patient is resting comfortably in bed appears to be in no acute distress. Patient's vitals reviewed have been stable afebrile, blood pressure 112/69, saturating at 96% on room air. On review of systems patient denies having any chest pain or palpitations. No cough or difficulty breathing. No abdominal pain nausea vomiting or diarrhea. Patient denies having any dysuria or hematuria or low back pain. On reviewing the patient's labs from this morning show sodium of 139, creatinine 0.76. Active Medications Acetaminophen (Tylenol Tab) 650 mg PO Q6HR PRN PRN Reason: Mild Pain or Fever > 100.5 Acetaminophen/Aspirin/Caffeine (Excedrin) 2 each PO HS PRN PRN Reason: sleep Alprazolam (Xanax) 0.25 mg PO TID PRN PRN Reason: Anxiety Last Admin: 01/29/20 21:57 Dose: 0.125 mg Documented by: Aspirin (Aspirin) 81 mg PO [facility] Last Admin: 01/31/20 20:10 Dose: 81 mg Documented by: Calcium Carbonate (Oscal 500+D) 1 each PO [facility] Last Admin: 01/31/20 20:11 Dose: 1 each Documented by: Heparin Sodium (Porcine) (Heparin) 5,000 unit SQ Q12HR [facility] Last Admin: 01/31/20 20:10 Dose: 5,000 unit Documented by: Sodium Chloride (Saline 0.9%) 1,000 mls @ 130 mls/hr IV .Q7H42M [facility] Last Admin: 01/31/20 20:28 Dose: Not Given Documented by: Ceftriaxone Sodium 1 gm/ (Sodium Chloride) 50 mls @ 100 mls/hr IVPB Q24HR [facility] Last Admin: 01/31/20 07:25 Dose: 100 mls/hr Documented by: Montelukast Sodium (Singulair) 10 mg PO [facility] Last Admin: 01/31/20 20:11 Dose: 10 mg Documented by: Naloxone HCl (Narcan) 0.2 mg IV Q2M PRN PRN Reason: Opioid Reversal Pantoprazole Sodium (Protonix) 40 mg PO AC-BRKFST [facility] Last Admin: 01/31/20 07:24 Dose: 40 mg Documented by: Objective - Vital Signs Vital signs: Vital Signs Temp 97.8 F 01/31/20 14:21 Pulse 66 01/31/20 14:21 Resp 16 01/31/20 14:21 BP 123/73 01/31/20 14:21 Pulse Ox 99 01/31/20 14:21 Intake & Output 01/30/20 01/31/20 01/31/20 18:59 06:59 18:59 Intake Total 600 Balance 600 Intake: Oral 600 Other: Voiding Method Toilet Toilet Toilet # Voids 1 2 # Bowel Movements 1 - Exam Gen: lying in bed, awake, alert and oriented 3, well-developed, well-nourished. HEENT: Head is atraumatic, normocephalic. Pupils equal, round. Sclerae is anicteric. NECK: Supple. No JVD. No lymphadenopathy. No thyromegaly. LUNGS: Breath sounds diminished at the bases with a few scattered rhonchi noted. HEART: Regular rate and rhythm. No murmur. ABDOMEN: Soft. Obese. Bowel sounds are present. No masses. No tenderness. EXTREMITIES: No calf tenderness. no lower extremity edema NEUROLOGICAL: Patient is awake, alert and oriented x3. No focal deficits - Labs CBC & Chem 7: 01/30/20 06:36 01/31/20 07:39 Labs: Abnormal Lab Results - Last 24 Hours (Table) 01/31/20 Range/Units 07:39 Chloride 110 H (98-107) mmol/L Glucose 123 H (74-99) mg/dL Microbiology - Last 24 Hours (Table) 01/29/20 15:47 Urine Culture - Preliminary Urine,Voided Gram Neg Bacilli 01/29/20 16:20 Blood Culture - Preliminary Blood No Growth after 24 hours Assessment and Plan Assessment: ASSESSMENT Sepsis secondary to UTI Mild transaminitis Hyperglycemia CHERISE resolving DJD History of skin and breast cancer History of basal cell carcinoma History of right mastectomy Obesity with BMI of 32 PLAN: Patient is currently on ceftriaxone for her UTI which will be continued. Awaiting final urine cultures to send the patient home on p.o. antibiotics. We will continue with the current medication regimen. Further recommendations to follow depending on the progress of the patient.
[2020-02-01] MEDS: SODIUM CHLORIDE 0.9% 1,000 ML IV SCH (05:34)
[2020-02-01 07:50] LABS: Albumin 3.4 g/dL (3.5-5.0); Potassium 4.3 mmol/L (3.5-5.1); Total Bilirubin 0.4 mg/dL (0.2-1.3)
[2020-02-01] MEDS: PANTOPRAZOLE 40 MG TABLET PO SCH (08:24)
[2020-02-01] MEDS: HEPARIN SODIUM,PORCINE 5,000 UNIT/ML 1 ML VIAL SQ SCH (08:24)
[2020-02-01 08:25] VITALS: RESP 16
--- NOTE | 2020-02-01 13:44 | P.DS ---
Providers Date of admission: 01/29/20 17:20 Expected date of discharge: 02/01/20 Attending physician: Sawyer Beard Primary care physician: [facility] Course: Ms. Hoffman is a 69-year-old female with a past medical history of breast cancer and skin cancer, osteoarthritis coming in with dysuria associated with fever and chills. Patient was empirically started on ceftriaxone after obtaining urine and blood cultures. Symptomatically patient improved as her dysuria and fever responded to IV ceftriaxone. Eventually urine cultures came back positivefor E. coli that is pansensitive. Blood cultures have been negative to date.patient has mild elevation in her AST is 3 and alkaline phosphatase levels. Hep panel was ordered, results are currently pending at this point. But patient is eager to leave home. Discussed with the patient about the mild transaminitis and the need to follow-up as outpatient. She is being discharged on by mouth levofloxacin to be taken for 3 more days. Patient prefers levofloxacin over ciprofloxacin.advised to follow up with her primary care physician in 2-3 days. Vital Signs 02/01/20 07:10 Temperature 98.2 F Pulse Rate [ 75 Pulse Oximetery ] Respiratory 16 Rate Blood Pressure 122/61 [Left Arm] O2 Sat by Pulse 97 Oximetry PHYSICAL EXAM Gen: lying in bed, awake, alert and oriented 3, well-developed, well-nourished. HEENT: Head is atraumatic, normocephalic. Pupils equal, round. Sclerae is anicteric. NECK: Supple. No JVD. No lymphadenopathy. No thyromegaly. LUNGS: Breath sounds Normal bilaterally. HEART: Regular rate and rhythm. No murmur. ABDOMEN: Soft. Obese. Bowel sounds are present. No masses. No tenderness. EXTREMITIES: No calf tenderness. no lower extremity edema NEUROLOGICAL: Patient is awake, alert and oriented x3. No focal deficits DISCHARGE DIAGNOSIS Sepsis secondary to UTI Mild transaminitis Hyperglycemia CHERISE resolving DJD History of skin and breast cancer History of basal cell carcinoma History of right mastectomy Obesity with BMI of 32 follow-up: patient is advised to follow up with her PCP for mild transaminitis. Advised to complete a course of antibiotics. More than 30 minutes spent with the discharge of the patient. Patient Condition at Discharge: Stable Plan - Discharge Summary Discharge Rx Participant: Yes New Discharge Prescriptions: New Levofloxacin [Levaquin] 750 mg PO DAILY 3 Days #3 tab Continue Montelukast [Singulair] 10 mg PO HS Calcium Citrate/Vitamin D3 [Calcitrate + Vit D Caplet] 1 tab PO HS Aspirin 81 mg PO HS Excedrin Pm 2 tab PO HS PRN PRN Reason: sleep Discharge Medication List Calcium Citrate/Vitamin D3 [Calcitrate + Vit D Caplet] 1 tab PO HS 01/03/18 [History] Montelukast [Singulair] 10 mg PO HS 01/03/18 [History] Aspirin 81 mg PO HS 07/24/18 [History] Excedrin Pm 2 tab PO HS PRN 11/11/19 [History] Levofloxacin [Levaquin] 750 mg PO DAILY 3 Days #3 tab 02/01/20 [Rx] Follow up Appointment(s)/Referral(s): Gabriela Eller MD [Primary Care Provider] - 1-2 days Discharge Disposition: HOME SELF-CARE
[2020-02-01 14:36] VITALS: BP 147/67; PULSE 70; TEMP 97.4
[2020-02-02 11:13] LABS: Hepatitis A Antibody IgM Non-Reactive (Non-Reactive); Hepatitis B Core IgM Non-Reactive (Non-Reactive); Hepatitis B Surface Antigen Non-Reactive (Non-Reactive); Hepatitis C IgG Antibody Non-Reactive (Non-Reactive)
== END 2020-02-01 14:35 | disposition home or self-care (01) | DRG 872 ==
LOC: EC 15:15 → 1SOBS 16:43 → OBSVTOIN 17:20 → 4SSUR 01-30 18:09
PROVIDERS: ADMIT Hospitalist; ATTEND Hospitalist
DX: A41.51 Sepsis due to Escherichia coli [E. coli] (principal); N17.9 Acute kidney failure, unspecified; N39.0 Urinary tract infection, site not specified; M19.90 Unspecified osteoarthritis, unspecified site; E66.9 Obesity, unspecified; F41.9 Anxiety disorder, unspecified; R74.0 Nonspecific elevation of levels of transaminase and lactic acid dehydrogenase [LDH]; R73.9 Hyperglycemia, unspecified; Z79.899 Other long term (current) drug therapy; Z79.82 Long term (current) use of aspirin; Z88.8 Allergy status to other drugs, medicaments and biological substances; Z85.3 Personal history of malignant neoplasm of breast; Z85.828 Personal history of other malignant neoplasm of skin; Z90.11 Acquired absence of right breast and nipple; Z87.891 Personal history of nicotine dependence; Z68.32 Body mass index [BMI] 32.0-32.9, adult; Z98.42 Cataract extraction status, left eye; Z98.41 Cataract extraction status, right eye; Z98.890 Other specified postprocedural states; Z80.3 Family history of malignant neoplasm of breast
CPT/HCPCS: 36415; 71045; 80048; 80053; 80074; 81001; 83605; 85025; 85610; 85730; 87040; 87077; 87086; 87186; 96365; 99284

== ENCOUNTER → 2020-10-06 | Outpatient (CLI) | payer MEDICARE ==
[2020-10-06 08:35] LABS: HCT 40.4 % (34.0-46.0); HGB 12.7 gm/dL (11.4-16.0); MCH 30.5 pg (25.0-35.0); MCHC 31.6 g/dL (31.0-37.0); MCV 96.6 fL (80.0-100.0); Platelet Count 224 k/uL (150-450); RBC 4.18 m/uL (3.80-5.40); RDW 13.1 % (11.5-15.5); WBC 7.3 k/uL (3.8-10.6)
[2020-10-06 08:40] LABS: Potassium 3.7 mmol/L (3.5-5.1)
== END | disposition home or self-care (01) ==
LOC: LABWHC1 07:59
PROVIDERS: ATTEND Internal Medicine Interventional Cardiology
DX: Z01.818 Encounter for other preprocedural examination (principal); R07.9 Chest pain, unspecified
CPT/HCPCS: 36415; 80051; 82565; 84520; 85027

== ENCOUNTER 2020-10-08 07:50 | Day surgery (SDC) | payer MEDICARE ==
[2020-10-06 16:18] VITALS: BMI 32.4
[~2020-10-08 07:50] MED LIST changes: -ACETAMINOPHEN TAB 500 MG TAB PO ONE; +ALPRAZolam 0.25 MG TAB PO PRN; +ALPRAZolam 0.5 MG TAB PO PRN; +ASPIRIN 325 MG TAB PO ONE; +ATORVASTATIN 80 MG TAB PO ONE; -GABAPENTIN 300 MG CAP PO ONE; -MELOXICAM 7.5 MG TAB PO ONE; +NITROGLYCERIN SL TABS 0.4 MG TAB SUBLINGUAL PRN; +SODIUM CHLORIDE 0.9% 1,000 ML in EMPTY BAG 1 BAG IV ONE; -TRANEXAMIC ACID 1,000 MG in SODIUM CHLORIDE 0.9% 100 ML IVPB ONE
[2020-10-08 08:13] VITALS: RESP 16; TEMP 98.1
[2020-10-08] MEDS ORDERED: VERAPAMIL 2.5 MG/ML 2 ML AMP ONE (08:44)
[2020-10-08] MEDS ORDERED: LIDOCAINE 1% INJ 10MG/ML (20 ML MDV) ONE (08:44)
[2020-10-08] MEDS ORDERED: HEPARIN SODIUM 1,000 UN/ML (10ML VL) ONE (08:52)
[2020-10-08] MEDS ORDERED: fentaNYL (PF) 50 MCG/ML 2 ML AMP ONE (08:52)
[2020-10-08] MEDS ORDERED: fentaNYL (PF) 50 MCG/ML 2 ML AMP IVP ONE (09:05)
[2020-10-08] MEDS ORDERED: LIDOCAINE 1% INJ 10MG/ML (20 ML MDV) SQ ONE (09:09)
[2020-10-08] MEDS ORDERED: VERAPAMIL SYRINGE (5 MG/10 ML) INTRAARTER ONE (09:11)
[2020-10-08] MEDS ORDERED: HEPARIN SODIUM 1,000 UN/ML (10ML VL) IV ONE (09:18)
[2020-10-08] MEDS ORDERED: IOPAMIDOL-370 125ML BTL INJ ONE (09:21)
[2020-10-08] MEDS ORDERED: RX INFO: IV CONTRAST WAS GIVEN 1 EACH MISC MISCELLANE PRN (09:30)
[2020-10-08] MEDS ORDERED: SODIUM CHLORIDE 0.9% 1,000 ML IV SCH (09:30)
--- NOTE | 2020-10-08 10:47 | CC ---
CARDIAC CATHETERIZATION REPORT Mrs. Hoffman is a 69-year-old female with no prior history of documented coronary artery disease who for the last week has been complaining of progressive dyspnea on exertion as well as exertional chest discomfort albeit with rest. Because of her new onset symptoms, recommendation made regarding cardiac catheterization. The procedure as well as the risks and the complications were discussed with the patient who is in full understanding and agreement. Of note, the patient was on oral nitrate as well as beta haylee. 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 Using Xylocaine anesthesia and Seldinger technique, a 6-Amharic sheath was introduced in the right radial artery. Selective right and left coronary angiography performed using 5-Amharic 3.5 bend right and left Andre catheter. Multiple views of the coronary artery including hemiaxial views were obtained. Following that, the right Andre was used to cross the aortic valve and left ventricular end-diastolic pressure was calculated. Following that, catheter and sheath were removed. Hemostasis was obtained with deployment of a TR band. There was no immediate complication. Patient is returned to his room in stable condition. Of note, the patient received 5000 units of intravenous heparin as well as intra-arterial verapamil. FINDINGS: LEFT MAIN: This is a short size vessel, bifurcating into left circumflex, left anterior descending artery, left main coronary artery has no evidence of high-grade stenosis. LEFT ANTERIOR DESCENDING CORONARY ARTERY: This vessel tapers down the distal third, gives rise to a diagonal branch of large caliber proximally. The left anterior descending artery as well as branches have no evidence of obstructive disease. LEFT CIRCUMFLEX: This is a large nondominant vessel giving rise to a large obtuse marginal branch. The left circumflex as well as branches have no evidence of obstructive coronary artery disease. RIGHT CORONARY ARTERY: This is a large dominant vessel bifurcating distally PDA and posterolateral segment and branches. The right coronary artery as well as branches have no evidence of obstructive coronary artery disease. LEFT VENTRICULOGRAM: Left ventriculogram was not performed. HEMODYNAMICS: There was no gradient across the aortic valve. The ventricle end-diastolic pressure was 14-18 mmHg. CONCLUSION: 1. Normal coronary arteries. 2. Right dominance. RECOMMENDATIONS: In view of findings and anatomy, I recommend continued medical therapy. Patient had some improvement in symptoms with the IV nitrate raising possibility of vasospastic disease. I will continue on the oral nitrate at this time and depending on her progress, further recommendations will be made. Those findings and recommendations were discussed with the patient and her family and they are in full understanding and agreement. Duration of the sedation: 15 minutes. MADINA / JOHN: [id number] /
--- NOTE | 2020-10-08 10:48 | LTR ---
DATE OF SERVICE: 10/08/[address] Eller: I had the pleasure of performing cardiac catheterization on Mrs. Hoffman at [facility] on October 08 and a full copy of procedure note will be forwarded to you. In brief, she was found to have no evidence of obstructive coronary artery disease. Of note that she had some improvement in symptoms after initiation of oral nitrate. In view of that, I will continue on the present therapy with possibility that she is having vasospastic disease. I will keep you updated on her progress. Thank you again for allowing me to participate in her care. Please feel free to call for any questions. Sincerely yours, MMODL / IJN: [id number] /
[2020-10-08 13:00] VITALS: BP 111/61; PULSE 56
[2020-10-08] MEDS ORDERED: METOPROLOL TARTRATE 25 MG TAB PO SCH (21:00)
[2020-10-08] MEDS ORDERED: MONTELUKAST 10 MG TAB PO SCH (21:00)
[2020-10-08] MEDS ORDERED: ASPIRIN 325 MG TAB PO SCH (21:00)
[2020-10-09] MEDS ORDERED: ISOSORBIDE MONONITRATE ER 30 MG TAB.ER.24H PO SCH (09:00)
== END 2020-10-08 14:05 | disposition home or self-care (01) ==
LOC: CATHCVL 07:50
PROVIDERS: ATTEND Internal Medicine Interventional Cardiology
DX: R07.89 Other chest pain (principal); R06.09 Other forms of dyspnea; Z87.891 Personal history of nicotine dependence; Z79.82 Long term (current) use of aspirin; Z79.899 Other long term (current) drug therapy; Z88.8 Allergy status to other drugs, medicaments and biological substances
CPT/HCPCS: 93458; C1769; C1894; J2001; J3010; J1644; Q9967

== ENCOUNTER → 2020-10-15 | Outpatient (CLI) | payer MEDICARE ==
--- NOTE | 2020-10-19 12:20 | HM ---
HOLTER MONITOR REPORT The patient was monitored for 24 hours. Baseline rhythm is a sinus mechanism with a normal conduction. The average rate was 66 beats per minute, minimum 47, maximum 99 beats per minute. Ventricular ectopic activity was present in the form of rare single PVCs. There was two episodes of nonsustained ventricular tachycardia with 4 complexes. Supraventricular ectopic activity was present in the form of rare single PACs. Symptoms of lightheaded, dizzy, short of breath did not correlate with any clear dysrhythmia. CONCLUSION: 1. Sinus mechanism baseline rhythm. 2. Rare ventricular ectopic activity with 2 episodes of 4 complex nonsustained ventricular tachycardia. 3. Rare supraventricular ectopic activity. 4. Symptoms did not correlate with any dysrhythmia. MMODL / IJN: [id number] /
== END | disposition home or self-care (01) ==
LOC: RADECHMAIN 11:52
PROVIDERS: ATTEND Internal Medicine
DX: R00.0 Tachycardia, unspecified (principal)
CPT/HCPCS: 93225; 93226

== ENCOUNTER → 2020-10-20 | Outpatient (CLI) | payer MEDICARE ==
--- NOTE | 2020-10-20 16:45 | CT ---
EXAMINATION TYPE: CT angio chest DATE OF EXAM: 10/20/2020 COMPARISON: None HISTORY: Dyspnea. History of breast cancer. CT DLP: 441.7 mGycm Automated exposure control for dose reduction was used. CONTRAST: Performed with IV Contrast, patient injected with 80ml mL of Isovue 370. Images are obtained from the thoracic inlet to the diaphragm with IV contrast. There are 3-D post processed images. The lungs are clear of infiltrate. There is no pleural effusion. Heart size is normal. There is no pe ricardial effusion. There is no mediastinal adenopathy. There are no hilar masses. There is normal contrast opacification of the pulmonary arteries. There are no filling defects. Thoracic aorta is intact. There is no aneur ysm or dissection. The ascending aorta measures 3.5 cm. Thoracic spine is intact. There is no compression fracture. Sternum is intact. Upper abdominal soft t issues are intact. There is right breast implant. IMPRESSION: No evidence of pulmonary embolism. Negative exam.
== END | disposition home or self-care (01) ==
LOC: RADCTMAIN 15:05
PROVIDERS: ATTEND Internal Medicine
DX: R06.00 Dyspnea, unspecified (principal); Z85.3 Personal history of malignant neoplasm of breast
CPT/HCPCS: 82565; 84520; 71275; 36415; Q9967

== ENCOUNTER → 2021-04-22 | Outpatient (CLI) | payer MEDICARE ==
--- NOTE | 2021-04-25 13:42 | MM ---
Reason for exam: screening (asymptomatic). Last mammogram was performed 2 years and 3 months ago. History: Patient is postmenopausal, has history of breast cancer at age 55, and history of other cancer. Family history of breast cancer in maternal grandmother and breast cancer in mother at age 60. Implant in the right breast, December 2006. Reduction of the left breast, December 2006. Mastectomy of the right breast, October 23, 2006. Malignant right mammotome panel of the right breast, July 20, 2006. Took hormonal contraceptives for 2 years. Took estrogen for 13 years 7 months beginning at age 42. Took progesterone for 13 years 7 months beginning at age 42. Took tamoxifen for 5 years beginning at age 55. Physical Findings: A clinical breast exam by your physician is recommended on an annual basis and results should be correlated with mammographic findings. MG 3D Scr Aditi Unilateral W/Cad CC and MLO view(s) were taken of the left breast. Prior study comparison: January 10, 2019, left breast MG 3d diag mammo w/cad LT. March 26, 2018, left breast MG 3d diag mammo w/cad LT. March 23, 2017, left breast MG 3d diag mammo w/cad LT. March 02, 2016, left breast MG 3d diag mammo w/cad LT. There are scattered fibroglandular densities. There is chronic nodularity in the left breast centrally. No significant changes when compared with prior studies. ASSESSMENT: Benign, BI-RAD 2 RECOMMENDATION: Routine screening mammogram of the left breast in 1 year.
== END | disposition home or self-care (01) ==
LOC: RADMAMWWP 13:09
PROVIDERS: ATTEND Internal Medicine Hematology & Oncology
DX: Z12.31 Encounter for screening mammogram for malignant neoplasm of breast (principal); Z80.3 Family history of malignant neoplasm of breast
CPT/HCPCS: 77067

== ENCOUNTER → 2022-11-09 | Outpatient (CLI) | payer MEDICARE ==
--- NOTE | 2022-11-09 08:31 | USB ---
Reason for Exam: Clinical finding. Patient History: Menarche at age 13. First Full-Term at age 20. Postmenopausal. Breast cancer, right, age 55. Estrogen for 13 years, 7 months, from age 42 until age 56. Progesterone for 13 years, 7 months, from age 42 until age 56. Patient used Hormonal Contraceptives for 2 years. Tamoxifen for 5 years from age 55 until age 60. 12/2007, Reduction on the Left side. 10/23/2006, Mastectomy on the Right side. 07/20/2006, Malignant Core Biopsy on the right side. 12/2006, Implant on the right side. Maternal grandmother had breast cancer. Mother had breast cancer, age 60. Technique: Method: Whole Breast Handheld. Prior Study Comparison: 01/10/2019 Left Diagnostic Mammogram, [facility]. 04/22/2021 Bilateral Screening Mammogram, [facility]. 04/26/2022 Left MG 3D diag mammo w/cad LT, [facility]. Findings: The whole breast of the left breast, the area of palpable concern of the left breast, the axilla of the left breast and the retroareolar of the left breast were scanned. A complete US of all four quadrants of the breast , axilla, and retro-areolar region were reviewed. * At the 2:00 palpable site, no discrete abnormality is seen. * In the axilla, a benign appearing but prominent 3.0 x 2.1 x 1.0 cm lymph node is present with preserved fatty hilum and thin uniform cortex. * At the 12:00 position, 10 cm from the nipple, there is an oval, circumscribed, hypoechoic, possibly cystic lesion measuring 7 x 6 x 2 mm. * At the 3:00 position, 2 cm from the nipple, there is a 3 mm hypoechoic lesion too small for accurate characterization. * No other solid or cystic lesion. Overall Assessment: Incomplete: need additional imaging evaluation, BI-RAD 0 Management: Diagnostic Mammogram of the left breast. Electronically signed and approved by: Jacqueline Huizar M.D. Radiologist
--- NOTE | 2022-11-09 08:55 | MM ---
Reason for Exam: Clinical finding. Last screening mammogram was performed 6 month(s) ago. Patient History: Menarche at age 13. First Full-Term at age 20. Postmenopausal. Breast cancer, right, age 55. Estrogen for 13 years, 7 months, from age 42 until age 56. Progesterone for 13 years, 7 months, from age 42 until age 56. Patient used Hormonal Contraceptives for 2 years. Tamoxifen for 5 years from age 55 until age 60. 12/2007, Reduction on the Left side. 10/23/2006, Mastectomy on the Right side. 07/20/2006, Malignant Core Biopsy on the right side. 12/2006, Implant on the right side. Maternal grandmother had breast cancer. Mother had breast cancer, age 60. Prior Study Comparison: 01/10/2019 Left Diagnostic Mammogram, [facility]. 04/22/2021 Bilateral Screening Mammogram, [facility]. 04/26/2022 Left MG 3D diag mammo w/cad , [facility]. Tissue Density: Left: There are scattered fibroglandular densities. Findings: Analyzed By CAD. There is an asymmetric density remain unchanged. Palpable or placed along the lateral aspect of the left breast. No underlying discrete abnormality is seen. Overall Assessment: Probably benign, BI-RAD 3 Management: Diagnostic Breast Ultrasound of the left breast in 6 months. Further clinical management of patient's left breast tenderness. Also, further clinical management for any suspicious palpable abnormalities. Patient should continue monthly self breast exams. Electronically signed and approved by: Jacqueline Huizar M.D. Radiologist
== END | disposition home or self-care (01) ==
LOC: RADUSWWP 07:37
PROVIDERS: ATTEND Internal Medicine Hematology & Oncology
DX: R92.8 Other abnormal and inconclusive findings on diagnostic imaging of breast (principal); C50.919 Malignant neoplasm of unspecified site of unspecified female breast; Z78.0 Asymptomatic menopausal state; Z80.3 Family history of malignant neoplasm of breast; Z90.11 Acquired absence of right breast and nipple; Z85.3 Personal history of malignant neoplasm of breast
CPT/HCPCS: 77065; 76641; G0279; 77061

== ENCOUNTER → 2023-05-10 | Outpatient (CLI) | payer MEDICARE ==
--- NOTE | 2023-05-10 10:09 | USB ---
Patient History: Menarche at age 13. First Full-Term at age 20. Postmenopausal. Breast cancer, right, age 55. Estrogen for 13 years, 7 months, from age 42 until age 56. Progesterone for 13 years, 7 months, from age 42 until age 56. Patient used Hormonal Contraceptives for 2 years. Tamoxifen for 5 years from age 55 until age 60. 12/2007, Reduction on the Left side. 10/23/2006, Mastectomy on the Right side. 07/20/2006, Malignant Core Biopsy on the right side. 12/2006, Implant on the right side. Maternal grandmother had breast cancer. Mother had breast cancer, age 60. Technique: Method: Targeted. Prior Study Comparison: 04/22/2021 Bilateral Screening Mammogram, [facility]. 04/26/2022 Left MG 3D diag mammo w/cad LT, [facility]. 11/09/2022 Left US breast LT, [facility]. 11/09/2022 Left MG 3D diag mammo w/cad LT, [facility]. Findings: The upper section of the breast of the left breast, the axilla of the left breast and the retroareolar of the left breast were scanned. There is a tiny hypodensity at the 3:00 position 2 cm measuring 0.2 x 0.1 x 0.2 cm. This may correlate with the prior examination smaller may be resolving cyst. No suspicious abnormality position is identified. Overall Assessment: Benign, BI-RAD 2 Management: Screening Mammogram of the left breast in 6 months. A clinical breast exam by your physician is recommended on an annual basis and results should be correlated with mammographic findings. This exam should not preclude additional follow-up of suspicious palpable abnormalities. Results were given to the patient verbally at the time of exam. Electronically signed and approved by: [employer] D.O. Radiologis
== END | disposition home or self-care (01) ==
LOC: RADMAMWWP 08:41
PROVIDERS: ATTEND Internal Medicine Hematology & Oncology
DX: R92.8 Other abnormal and inconclusive findings on diagnostic imaging of breast (principal); Z78.0 Asymptomatic menopausal state; Z80.3 Family history of malignant neoplasm of breast

== ENCOUNTER → 2023-11-12 | Outpatient (CLI) | payer MEDICARE ==
--- NOTE | 2023-11-12 10:01 | MM ---
Reason for Exam: Follow-up at short interval from prior study. Last screening mammogram was performed 12 month(s) ago. Patient History: Menarche at age 13. First Full-Term at age 20. Postmenopausal. Breast cancer, right, age 55. Estrogen for 13 years, 7 months, from age 42 until age 56. Progesterone for 13 years, 7 months, from age 42 until age 56. Patient used Hormonal Contraceptives for 2 years. Tamoxifen for 5 years from age 55 until age 60. 12/2007, Reduction on the Left side. 10/23/2006, Mastectomy on the Right side. 07/20/2006, Malignant Core Biopsy on the right side. 12/2006, Implant on the right side. Maternal grandmother had breast cancer. Mother had breast cancer, age 60. Prior Study Comparison: 04/22/2021 Bilateral Screening Mammogram, [facility]. 04/26/2022 Left MG 3D diag mammo w/cad LT, [facility]. 11/09/2022 Left MG 3D diag mammo w/cad LT, [facility]. Tissue Density: Left: There are scattered areas of fibroglandular density. Findings: Analyzed By CAD. Pattern is stable. There are stable small round calcifications in the outer mid left breast, unchanged. No suspicious groups of microcalcifications, spiculated or lobular masses, architectural distortion or other secondary signs of malignancy are mammographically apparent. Overall Assessment: Benign, BI-RAD 2 Management: Screening Mammogram of the left breast in 1 year. A negative mammogram report should not preclude additional follow up of suspicious palpable abnormalities. Patient should continue monthly self breast exam. A clinical breast exam by your physician is recommended on an annual basis and results should be correlated with mammographic findings. Note on Halima scores and lifetime risk: 1. A Halima score greater than 3% is considered moderate risk. If this is the case, consider specialist referral to assess eligibility for a risk reducing agent. 2. If overall lifetime risk for the development of breast cancer is 20% or higher, the patient may qualify for future screening with alternating mammogram and breast MRI. Electronically signed and approved by: [employer] D.O. Radiologis
== END | disposition home or self-care (01) ==
LOC: RADMAMWWP 09:39
PROVIDERS: ATTEND Internal Medicine Hematology & Oncology
DX: R92.322 Mammographic fibroglandular density, left breast (principal); R92.1 Mammographic calcification found on diagnostic imaging of breast; C50.919 Malignant neoplasm of unspecified site of unspecified female breast; M85.9 Disorder of bone density and structure, unspecified; J45.21 Mild intermittent asthma with (acute) exacerbation; B02.9 Zoster without complications; R51.9 Headache, unspecified; Z71.3 Dietary counseling and surveillance; Z80.3 Family history of malignant neoplasm of breast; Z78.0 Asymptomatic menopausal state; Z98.82 Breast implant status; Z90.11 Acquired absence of right breast and nipple
CPT/HCPCS: 77065; G0279; 77061

== ENCOUNTER → 2024-09-30 | Outpatient (CLI) | payer MEDICARE ==
[2024-09-30 09:14] LABS: Influenza A Not Detected (Not Detectd); Influenza B Not Detected (Not Detectd); RSV Not Detected (Not Detectd)
== END | disposition home or self-care (01) ==
LOC: LABWHC1 08:03
PROVIDERS: ATTEND Internal Medicine
DX: Z20.822 Contact with and (suspected) exposure to COVID-19 (principal); R05.9 Cough, unspecified; R50.9 Fever, unspecified
CPT/HCPCS: 87636

== ENCOUNTER → 2025-01-16 | Outpatient (CLI) | payer MEDICARE ==
--- NOTE | 2025-01-16 15:19 | MM ---
Reason for Exam: Screening (asymptomatic). Last mammogram was performed 1 year(s) and 2 month(s) ago. Patient History: Gender re-assignment: Female to Male. Menarche at age 13. First Full-Term at age 20. Postmenopausal. Breast cancer, right, age 55. Estrogen for 13 years, 7 months, from age 42 until age 56. Progesterone for 13 years, 7 months, from age 42 until age 56. Patient used Hormonal Contraceptives for 2 years. Tamoxifen for 5 years from age 55 until age 60. 12/2007, Reduction on the Left side. 10/23/2006, Mastectomy on the Right side. 07/20/2006, Malignant Core Biopsy on the right side. 12/2006, Implant on the right side. Maternal grandmother had breast cancer. Mother had breast cancer, age 60. Prior Study Comparison: 03/26/2018 Left Diagnostic Mammogram, [facility]. 01/10/2019 Left Diagnostic Mammogram, [facility]. 04/22/2021 Bilateral Screening Mammogram, [facility]. 04/26/2022 Left MG 3D diag mammo w/cad LT, [facility]. 11/09/2022 Left MG 3D diag mammo w/cad LT, [facility]. 11/12/2023 Left MG 3D diag mammo w/cad LT, [facility]. Tissue Density: Left: There are scattered areas of fibroglandular density. Findings: Analyzed By CAD. Right breast: There is no suspicious group of microcalcifications or new suspicious mass. Left breast: There is no suspicious group of microcalcifications or new suspicious mass. Overall Assessment: Negative, BI-RAD 1 Management: Screening Mammogram of both breasts in [address] [facility] will attempt to contact patient to return for supplemental views and ultrasound if indicated. Patient should continue monthly self-breast exams. A clinical breast exam by your physician is recommended on an annual basis. This exam should not preclude additional follow-up of suspicious palpable abnormalities. Note on Halima scores and lifetime risk: 1. A Halima score greater than 3% is considered moderate risk. If this is the case, consider specialist referral to assess eligibility for a risk reducing agent. 2. If overall lifetime risk for the development of breast cancer is 20% or higher, the patient may qualify for future screening with alternating mammogram and breast MRI. [facility], , 01/16/2025 3:15 PM. Electronically signed and approved by: Giancarlo Singh DO
== END | disposition home or self-care (01) ==
LOC: RADMAMWWP 13:37
PROVIDERS: ATTEND Internal Medicine Hematology & Oncology
DX: Z12.31 Encounter for screening mammogram for malignant neoplasm of breast (principal); R92.322 Mammographic fibroglandular density, left breast; Z78.0 Asymptomatic menopausal state; Z85.3 Personal history of malignant neoplasm of breast; Z80.3 Family history of malignant neoplasm of breast; Z90.11 Acquired absence of right breast and nipple; Z92.0 Personal history of contraception
CPT/HCPCS: 77067